=== PATIENT | female | born 1945 | race Caucasian/White ===

== ENCOUNTER 2018-01-04 03:25 | Emergency (ER) | payer MEDICARE ==
[2018-01-04] MEDS ORDERED: NS 0.9% 1000 ML* 1,000 ML IV ONE (04:09)
[2018-01-04] MEDS ORDERED: Ketorolac INJ* 30 MG/ML 1 ML VIAL IV ONE (04:09)
[2018-01-04 04:51] LABS: Urine Appearance Clear; Urine Blood Negative (Negative); Urine Color Straw; Urine Ketones Negative (Negative); Urine Protein Negative (Negative); Urine Specific Gravity 1.009 (1.010-1.030); Urine Urobilinogen Negative (Negative)
[2018-01-04 04:57] LABS: INR 0.87 (0.77-1.02)
[2018-01-04 05:00] LABS: ABS Basophils 0 10^3/ul (0-0.2); ABS Eosinophils 0.3 10^3/ul (0-0.6); ABS Lymphocytes 0.7 10^3/ul (1.0-4.8); ABS Monocytes 0.7 10^3/ul (0-0.8); ABS Neutrophils 5.8 10^3/ul (1.5-7.7); ABS Nucleated RBC 0 10^3/ul; Eosinophil % 3.8 % (0-6); Hematocrit 31 % (35-47); Hemoglobin 10.4 g/dl (12.0-16.0); Lymphocyte % 8.9 % (25-47); Mean Corpuscular HGB Conc 34 g/dl (31-36); Mean Corpuscular Hemoglobin 32 pg (27-31); Mean Corpuscular Volume 96 fL (80-97); Mean Platelet Volume 6.8 um3 (7.4-10.4); Nucleated Red Blood Cells % 0.1; Platelet Count 316 10^3/ul (150-450); Red Blood Count 3.23 10^6/ul (4.0-5.4); Red Cell Distribution Width 13 % (10.5-15); White Blood Count 7.4 10^3/ul (3.5-10.8)
[2018-01-04 05:09] LABS: EGFR Non-African American 53.6 (>60)
[2018-01-04 06:01] VITALS: BP 146/82
--- NOTE | 2018-01-04 06:02 | ED ---
Shine Eli Gabriel, scribed for Earl Ordonez on 01/04/18 at 0403 . Abdominal Pain/Female - HPI Summary HPI Summary: This patient is a 72 year old F presenting to [facility] accompanied by her partner with a chief complaint of ABD pain since 2000 tonight after she took oxycodone. The patient rates the pain 9/10 in severity. Patient reports mild vomiting. Pt states she had not eaten a lot tonight and took her pain reliever anyway. Hx pancreatic cancer - History of Current Complaint Chief Complaint: EDAbdPain Stated Complaint: ABD PAIN Time Seen by Provider: 01/04/18 03:54 Hx Obtained From: Patient Onset/Duration: Still Present Timing: Constant Severity Initially: Severe Severity Currently: Severe Pain Intensity: 9 Pain Scale Used: 0-10 Numeric Location: Diffuse Radiates: No Associated Signs and Symptoms: Positive: Vomiting - mild. Negative: Diarrhea Allergies/Adverse Reactions: Allergies Allergy/AdvReac Type Severity Reaction Status Date / Time bacitracin Allergy Rash Verified 01/04/18 03:32 neomycin Allergy Rash Verified 01/04/18 03:32 [From Neosporin ([id number])] polymyxin B Allergy Rash Verified 01/04/18 03:32 [From Neosporin ([id number])] PMH/Surg Hx/FS Hx/Imm Hx Endocrine/Hematology History: Denies: Hx Diabetes Cardiovascular History: Reports: Hx Hypertension Sensory History: Denies: Hx Legally Blind, Hx Deafness Opthamlomology History: Denies: Hx Legally Blind - Cancer History Cancer Type, Location and Year: pancreatic 2018 Hx Chemotherapy: No Hx Radiation Therapy: No - Surgical History Surgery Procedure, Year, and Place: appendectomy, exploratory lap to find Left pelvic kidney, Infectious Disease History: No Infectious Disease History: Reports: Hx Hepatitis - type A at age 18 Denies: History Other Infectious Disease, Traveled Outside the [place] in Last 30 Days - Family History Known Family History: Negative: Cardiac Disease Family History: no reported cardio vascular issues in family lineage - Social History Alcohol Use: Rare Hx Substance Use: No Substance Use Type: Reports: None Hx Tobacco Use: No Smoking Status (MU): Never Smoked Tobacco Review of Systems Negative: Fever Positive: Abdominal Pain, Vomiting. Negative: Diarrhea All Other Systems Reviewed And Are Negative: Yes Physical Exam - Summary Physical Exam Summary: Appearance: Well appearing, no pain distress Skin: warm, dry, reflects adequate perfusion Head/face: normal Eyes: EOMI, VETO ENT: normal Neck: supple, non-tender Respiratory: CTA, breath sounds present Cardiovascular: RRR, pulses symmetrical Abdomen: diffuse ABD tenderness Bowel: present Musculoskeletal: normal, strength/ROM intact Neuro: normal, sensory motor intact, A&Ox3 Triage Information Reviewed: Yes Vital Signs On Initial Exam: Initial Vitals Temp Pulse Resp BP Pulse Ox 97.9 F 83 16 155/88 99 01/04/18 03:29 01/04/18 03:29 01/04/18 03:29 01/04/18 03:29 01/04/18 03:29 Vital Signs Reviewed: Yes Diagnostics - Vital Signs Vital Signs Temp Pulse Resp BP Pulse Ox 01/04/18 03:29 97.9 F 83 16 155/88 99 - Laboratory Lab Results: Lab Results 01/04/18 01/04/18 01/04/18 Range/Units 04:34 04:34 04:34 WBC 7.4 (3.5-10.8) 10^3/ul RBC 3.23 L (4.0-5.4) 10^6/ul Hgb 10.4 L (12.0-16.0) g/dl Hct 31 L (35-47) % MCV 96 (80-97) fL MCH 32 H (27-31) pg MCHC 34 (31-36) g/dl RDW 13 (10.5-15) % Plt Count 316 (150-450) 10^3/ul MPV 6.8 L (7.4-10.4) um3 Neut % (Auto) 77.9 (38-83) % Lymph % (Auto) 8.9 L (25-47) % [place] % (Auto) 8.8 H (0-7) % Eos % (Auto) 3.8 (0-6) % Baso % (Auto) 0.6 (0-2) % Absolute Neuts (auto) 5.8 (1.5-7.7) 10^3/ul Absolute Lymphs (auto) 0.7 L (1.0-4.8) 10^3/ul Absolute Monos (auto) 0.7 (0-0.8) 10^3/ul Absolute Eos (auto) 0.3 (0-0.6) 10^3/ul Absolute Basos (auto) 0 (0-0.2) 10^3/ul Absolute Nucleated RBC 0 10^3/ul Nucleated RBC % 0.1 INR (Anticoag Therapy) 0.87 (0.77-1.02) APTT 32.6 (26.0-36.3) seconds Sodium 124 L (139-145) mmol/L Potassium 3.8 (3.5-5.0) mmol/L Chloride 90 L (101-111) mmol/L Carbon Dioxide 27 (22-32) mmol/L Anion Gap 7 (2-11) mmol/L BUN 11 (6-24) mg/dL Creatinine 1.02 H (0.51-0.95) mg/dL Est GFR ( Amer) 68.9 (>60) Est GFR (Non-Af Amer) 53.6 (>60) BUN/Creatinine Ratio 10.8 (8-20) Glucose 126 H (70-100) mg/dL Lactic Acid (0.5-2.0) mmol/L Calcium 10.0 (8.6-10.3) mg/dL Total Bilirubin 0.70 (0.2-1.0) mg/dL AST 22 (13-39) U/L ALT 16 (7-52) U/L Alkaline Phosphatase 97 (34-104) U/L Troponin I 0.01 (<0.04) ng/mL Total Protein 6.9 (6.4-8.9) g/dL Albumin 4.1 (3.2-5.2) g/dL Globulin 2.8 (2-4) g/dL Albumin/Globulin Ratio 1.5 (1-3) Lipase 10 L (11.0-82.0) U/L Urine Color Urine Appearance Urine pH (5-9) Ur Specific [place] (1.010-1.030) Urine Protein (Negative) Urine Ketones (Negative) Urine Blood (Negative) Urine Nitrate (Negative) Urine Bilirubin (Negative) Urine Urobilinogen (Negative) Ur Leukocyte Esterase (Negative) Urine Glucose (Negative) 01/04/1818 Range/Units 04:34 04:34 WBC (3.5-10.8) 10^3/ul RBC (4.0-5.4) 10^6/ul Hgb (12.0-16.0) g/dl Hct (35-47) % MCV (80-97) fL MCH (27-31) pg MCHC (31-36) g/dl RDW (10.5-15) % Plt Count (150-450) 10^3/ul MPV (7.4-10.4) um3 Neut % (Auto) (38-83) % Lymph % (Auto) (25-47) % [place] % (Auto) (0-7) % Eos % (Auto) (0-6) % Baso % (Auto) (0-2) % Absolute Neuts (auto) (1.5-7.7) 10^3/ul Absolute Lymphs (auto) (1.0-4.8) 10^3/ul Absolute Monos (auto) (0-0.8) 10^3/ul Absolute Eos (auto) (0-0.6) 10^3/ul Absolute Basos (auto) (0-0.2) 10^3/ul Absolute Nucleated RBC 10^3/ul Nucleated RBC % INR (Anticoag Therapy) (0.77-1.02) APTT (26.0-36.3) seconds Sodium (139-145) mmol/L Potassium (3.5-5.0) mmol/L Chloride (101-111) mmol/L Carbon Dioxide (22-32) mmol/L Anion Gap (2-11) mmol/L BUN (6-24) mg/dL Creatinine (0.51-0.95) mg/dL Est GFR ( Amer) (>60) Est GFR (Non-Af Amer) (>60) BUN/Creatinine Ratio (8-20) Glucose (70-100) mg/dL Lactic Acid 0.6 (0.5-2.0) mmol/L Calcium (8.6-10.3) mg/dL Total Bilirubin (0.2-1.0) mg/dL AST (13-39) U/L ALT (7-52) U/L Alkaline Phosphatase (34-104) U/L Troponin I (<0.04) ng/mL Total Protein (6.4-8.9) g/dL Albumin (3.2-5.2) g/dL Globulin (2-4) g/dL Albumin/Globulin Ratio (1-3) Lipase (11.0-82.0) U/L Urine Color Straw Urine Appearance Clear Urine pH 6.0 (5-9) Ur Specific [place] 1.009 L (1.010-1.030) Urine Protein Negative (Negative) Urine Ketones Negative (Negative) Urine Blood Negative (Negative) Urine Nitrate Negative (Negative) Urine Bilirubin Negative (Negative) Urine Urobilinogen Negative (Negative) Ur Leukocyte Esterase Negative (Negative) Urine Glucose Negative (Negative) Result Diagrams: 01/04/18 04:34 01/04/18 04:34 Lab Statement: Any lab studies that have been ordered have been reviewed, and results considered in the medical decision making process. - Radiology ABD Xray Radiology Interpretation Completed By: ED Physician - no acute disease Abdominal Pain Fem Course/Dx - Course Course Of Treatment: This patient is a 72 year old F presenting to [facility] accompanied by her partner with a chief complaint of ABD pain since 1999 tonight after she took oxycodone. The patient rates the pain 9/10 in severity. Patient reports mild vomiting. Pt states she had not eaten a lot tonight and took her pain reliever anyway. Hx pancreatic cancer. ABD XR reveals, no acute disease. Blood work and UA obtained. In the ED course the patient was given toradol and pt is feeling better. Dx ABD pain and pancreatic cancer. Patient will be discharged with and follow up from PCP. The patient is agreeable with this plan. - Diagnoses Differential Diagnosis: Positive: Bowel Obstruction Provider Diagnoses: Abdominal pain, Pancreatic cancer Discharge - Sign-Out/Discharge Documenting (check all that apply): Discharge/Admit/Transfer - Discharge Plan Condition: Stable Disposition: HOME Patient Education Materials: Acute Abdominal Pain (ED) Referrals: Jefry Vines MD [Primary Care Provider] - 3 Days Additional Instructions: RETURN TO THE EMERGENCY DEPARTMENT FOR CHANGING OR WORSENING SYMPTOMS - Billing Disposition and Condition Condition: STABLE Disposition: HOME The documentation as recorded by the Shine hilton Gabriel accurately reflects the service I personally performed and the decisions made by Mery guerra Emmanuel.
--- NOTE | 2018-01-04 08:31 | RAD ---
Indication: LEFT lower quadrant pain. History of pancreatic mass. Comparison: December 17, 2017 CT Technique: Supine view of the abdomen. Report: Unremarkable bowel gas pattern. Small volume of stool visualized in the colon. Few pelvic phleboliths. Subtle RIGHT upper quadrant calcifications corresponding with calcified gallstones on CT. Costochondral calcifications. Unremarkable soft tissue contours. Degenerative spondylosis. No suspicious focal osseous lesions evident. IMPRESSION: 1. Cholelithiasis. 2. No acute abdominal pelvic pathologic process evident within limits of supine abdomen radiograph.
== END 2018-01-04 06:03 | disposition home or self-care (01) ==
LOC: ED 03:25
DX: R10.32 Left lower quadrant pain (principal); C25.9 Malignant neoplasm of pancreas, unspecified; K80.20 Calculus of gallbladder without cholecystitis without obstruction
CPT/HCPCS: 36415; 74018; 80053; 81003; 83605; 83690; 84484; 85025; 85610; 85730; 96360; 96374; 99283; J1885

== ENCOUNTER 2018-01-08 17:51 | Emergency (ER) | payer MEDICARE ==
[2018-01-08] MEDS ORDERED: Ketorolac INJ* 30 MG/ML 1 ML VIAL IV PUSH ONE (18:31)
--- NOTE | 2018-01-08 19:09 | RAD ---
HISTORY: Constipation, pain COMPARISONS: January 04, 2018 VIEWS: Frontal views of the abdomen. FINDINGS: BOWEL: There is a nonspecific bowel gas pattern, with nondilated small bowel gas noted. There is a large amount of stool within the colon. CALCULI: Again noted are calculi of the right upper quadrant. BONES AND SOFT TISSUES: Degenerative changes are noted OTHER FINDINGS: The lung bases are clear. There is no subphrenic gas. IMPRESSION: NONSPECIFIC BOWEL GAS PATTERN. LARGE AMOUNT OF STOOL WITHIN THE COLON.
--- NOTE | 2018-01-08 20:03 | ED ---
Ping Eli Emily, scribed for Dandre Dennis MD on 01/08/18 at 1832 . Abdominal Pain/Female - HPI Summary HPI Summary: This patient is a 72 year old F presenting to [facility] accompanied by with a chief complaint of intermittent, cramping abd pain that began early this morning. The patient rates the pain 10/10 in severity. Symptoms aggravated by nothing. Symptoms alleviated by nothing. Patient reports constipation. Patient denies fever. Pt reports experiencing similar symptoms previously. - History of Current Complaint Chief Complaint: EDAbdPain Stated Complaint: ABD PAIN Time Seen by Provider: 01/08/18 18:22 Hx Obtained From: Patient Onset/Duration: Sudden Onset Timing: Constant Severity Initially: Severe Severity Currently: Severe Pain Intensity: 10 Pain Scale Used: 0-10 Numeric Location: Diffuse Radiates: No Character: Cramping Aggravating Factor(s): Nothing Alleviating Factor(s): Nothing Associated Signs and Symptoms: Positive: Other: - Positive constipation. Negative fever Allergies/Adverse Reactions: Allergies Allergy/AdvReac Type Severity Reaction Status Date / Time bacitracin Allergy Rash Verified 01/08/18 17:57 neomycin Allergy Rash Verified 01/08/18 17:57 [From Neosporin ([id number])] polymyxin B Allergy Rash Verified 01/08/18 17:57 [From Neosporin ([id number])] Home Medications: Home Medications Ondansetron ODT TAB* [Zofran 4 MG Odt TAB*] 4 mg PO Q6H PRN 01/08/18 [History Confirmed 01/08/18] PMH/Surg Hx/FS Hx/Imm Hx Previously Healthy: No Endocrine/Hematology History: Denies: Hx Diabetes Cardiovascular History: Reports: Hx Hypertension Sensory History: Denies: Hx Legally Blind, Hx Deafness Opthamlomology History: Denies: Hx Legally Blind - Cancer History Cancer Type, Location and Year: pancreatic 2018 Hx Chemotherapy: No Hx Radiation Therapy: No - Surgical History Surgery Procedure, Year, and Place: appendectomy, exploratory lap to find Left pelvic kidney, Infectious Disease History: No Infectious Disease History: Reports: Hx Hepatitis - type A at age 18 Denies: History Other Infectious Disease, Traveled Outside the [place] in Last 30 Days - Family History Known Family History: Positive: Other - Positive breast CA Negative: Cardiac Disease Family History: no reported cardio vascular issues in family lineage - Social History Occupation: Employed Full-time Lives: With Family Alcohol Use: Rare Hx Substance Use: No Substance Use Type: Reports: None Hx Tobacco Use: No Smoking Status (MU): Never Smoked Tobacco Review of Systems Negative: Fever Positive: Abdominal Pain, Other - Positive constipation All Other Systems Reviewed And Are Negative: Yes Physical Exam - Summary Physical Exam Summary: Appearance: Well appearing, no pain distress Skin: warm, dry, reflects adequate perfusion Head/face: normal Eyes: EOMI, VETO ENT: normal Neck: supple, non-tender Respiratory: CTA, breath sounds present Cardiovascular: RRR, pulses symmetrical Abdomen: non-tender, Diffuse fullness to her abd Bowel Sounds: present Rectal Exam: empty, soft stool only Musculoskeletal: normal, strength/ROM intact Neuro: normal, sensory motor intact, A&Ox3 Triage Information Reviewed: Yes Vital Signs On Initial Exam: Initial Vitals Temp Pulse Resp BP Pulse Ox 98.7 F 90 17 162/85 100 01/08/18 17:53 01/08/18 17:53 01/08/18 17:53 01/08/18 17:53 01/08/18 17:53 Vital Signs Reviewed: Yes Diagnostics - Vital Signs Vital Signs Temp Pulse Resp BP Pulse Ox 01/08/18 17:53 98.7 F 90 17 162/85 100 - Laboratory Lab Statement: Any lab studies that have been ordered have been reviewed, and results considered in the medical decision making process. - Radiology Abdomen XR Radiology Interpretation Completed By: Radiologist - Abdomen XR reveals, per radiologist, nonspecific bowel gas pattern. Large amount of stool within the colon. ED physician has reviewed this radiology report. Re-Evaluation - Re-Evaluation First Eval Re-Evaluation Time: 19:30 Change: Improved Comment: Performed an enema on the pt Second Eval Re-Evaluation Time: 19:51 Change: Improved Comment: Discussed plan of care with pt Abdominal Pain Fem Course/Dx - Course Course Of Treatment: Patient with opiate related constipation and history of metastatic pancreatic cancer. X-ray confirms constipation. Patient didn't have a lot of pain until she took magnesium citrate. She had relief here after Toradol and soapsuds enema. She did pass a good amount of stool. She will follow up with her primary care physician. - Diagnoses Provider Diagnoses: Constipation, History of pancreatic cancer Discharge - Sign-Out/Discharge Documenting (check all that apply): Discharge/Admit/Transfer - Discharge home - Discharge Plan Condition: Improved Disposition: HOME Prescriptions: Hyoscyamine Sulfate [Levsin-Sl] 0.125 mg SL Q6H PRN #20 sub PRN Reason: cramping Polyethylene Glycol 3350 BTL* [Miralax] 17 gm PO TID PRN #1 btl PRN Reason: Constipation Patient Education Materials: Constipation (ED) Referrals: Jefry Vines MD [Primary Care Provider] - Additional Instructions: Natural fruit juices may help. Drink lots of clear liquids. Exercise and abdominal massage. Home bowel regimen including MiraLAX. If this doesn't work your doctor can consider prescribing you Relistor (for opiate-related constipation). Home use of enemas may help. Return if worse, new symptoms or other concerns. - Billing Disposition and Condition Condition: IMPROVED Disposition: HOME The documentation as recorded by the Ping hilton Emily accurately reflects the service I personally performed and the decisions made by me, Dandre Dennis MD.
[2018-01-08 20:16] VITALS: BP 102/77
== END 2018-01-08 20:15 | disposition home or self-care (01) ==
LOC: ED 17:51
DX: K59.00 Constipation, unspecified (principal); R10.9 Unspecified abdominal pain; Z85.07 Personal history of malignant neoplasm of pancreas
CPT/HCPCS: 74018; 96374; 99283; J1885

== ENCOUNTER 2018-02-13 15:38 | Emergency (ER) | payer MEDICARE, OTHER ==
[2018-02-13] MEDS ORDERED: NS 0.9% 1000 ML* 1,000 ML IV ONE (17:42)
[2018-02-13] MEDS ORDERED: Ketorolac INJ* 30 MG/ML 1 ML VIAL IV PUSH ONE (17:55)
[2018-02-13 18:44] LABS: Hematocrit 31 % (35-47); Hemoglobin 10.6 g/dl (12.0-16.0); Mean Corpuscular HGB Conc 34 g/dl (31-36); Mean Corpuscular Hemoglobin 31 pg (27-31); Mean Corpuscular Volume 93 fL (80-97); Mean Platelet Volume 7.5 um3 (7.4-10.4); Platelet Count 137 10^3/ul (150-450); Red Blood Count 3.37 10^6/ul (4.0-5.4); Red Cell Distribution Width 13 % (10.5-15); White Blood Count 0.9 10^3/ul (3.5-10.8)
[2018-02-13 19:00] LABS: EGFR Non-African American 70.9 (>60)
[2018-02-13 19:11] LABS: Urine Appearance Clear; Urine Blood 1+ (Negative); Urine Color Yellow; Urine Ketones Negative (Negative); Urine Protein Negative (Negative); Urine Red Blood Cell Trace(0-2/hpf) (Absent); Urine Specific Gravity 1.008 (1.010-1.030); Urine Urobilinogen Negative (Negative); Urine White Blood Cell Trace(0-5/hpf) (Absent)
[2018-02-13 19:20] LABS: ABS Basophils 0 10^3/ul (0-0.2); ABS Eosinophils 0.1 10^3/ul (0-0.6); ABS Lymphocytes 0.4 10^3/ul (1.0-4.8); ABS Monocytes 0.1 10^3/ul (0-0.8); ABS Nucleated RBC 0 10^3/ul; Eosinophil % 7.5 % (0-6); Lymphocyte % 40.5 % (25-47); Nucleated Red Blood Cells % 0.1
[2018-02-13] MEDS ORDERED: Potassium Chloride LIQUID* 20 MEQ PACKET PO ONE (19:39)
[2018-02-13] MEDS ORDERED: Magnesium Sulfate 1 GM IV* 1 GM/100 ML BAG IV ONE (19:39)
--- NOTE | 2018-02-13 20:24 | ED ---
Inge Eli Julia, scribed for Terell Grande MD on 02/13/18 at 1756 . Abdominal Pain/Female - HPI Summary HPI Summary: This patient is a 72 year old F presenting to [facility] accompanied by her with a chief complaint of intermittent lower abdominal pain and cramping since yesterday and diarrhea for the past few days. She has been taking Imodium for her symptoms. She states she is now unable to pass gas. Pain is 10/10 in severity. Patient just started chemotherapy two weeks ago for pancreatic cancer. - History of Current Complaint Chief Complaint: EDAbdPain Stated Complaint: ABD PAIN Time Seen by Provider: 02/13/18 17:41 Hx Obtained From: Patient Onset/Duration: Lasting Days Timing: Intermittent Episode Lasting Severity Currently: Severe Pain Intensity: 10 Pain Scale Used: 0-10 Numeric Location: Other - lower Radiates: No Character: Cramping Alleviating Factor(s): Nothing Associated Signs and Symptoms: Positive: Diarrhea Allergies/Adverse Reactions: Allergies Allergy/AdvReac Type Severity Reaction Status Date / Time neomycin Allergy Rash Verified 02/13/18 15:44 [From Neosporin ([id number])] Opioids - Morphine Analogues Allergy See Comment Verified 02/13/18 15:44 polymyxin B Allergy Rash Verified 02/13/18 15:44 [From Neosporin ([id number])] PMH/Surg Hx/FS Hx/Imm Hx Endocrine/Hematology History: Denies: Hx Diabetes Cardiovascular History: Reports: Hx Hypertension - ON MEDICATION- "LABILE" BP Denies: Hx Pacemaker/ICD Respiratory History: Denies: Hx Asthma GI History: Reports: Other GI Disorders - PANCREATIC CANCER, N/V/D with chemo History: Denies: Hx Renal Disease Musculoskeletal History: Reports: Hx Arthritis, Hx Back Problems - compression fractures in spine, back and neck pain Sensory History: Denies: Hx Legally Blind, Hx Deafness, Hx Hearing Aid Opthamlomology History: Denies: Hx Legally Blind Psychiatric History: Reports: Hx Anxiety, Hx Depression Denies: Hx Panic Disorder - Cancer History Cancer Type, Location and Year: pancreatic 2017 Hx Chemotherapy: Yes - started february 2018 Hx Radiation Therapy: No - Surgical History Surgery Procedure, Year, and Place: appendectomy with exploratory lap to find Left pelvic kidney, , Infectious Disease History: No Infectious Disease History: Reports: Hx Hepatitis - hepatitis A Denies: History Other Infectious Disease, Traveled Outside the [place] in Last 30 Days - Family History Known Family History: Positive: Other - Positive breast CA Negative: Cardiac Disease Family History: no reported cardio vascular issues in family lineage - Social History Alcohol Use: None Hx Substance Use: No Substance Use Type: Reports: None Hx Tobacco Use: No Smoking Status (MU): Never Smoked Tobacco Review of Systems Negative: Fever Gastrointestinal: Other - unable to pass gas Positive: Abdominal Pain, Diarrhea All Other Systems Reviewed And Are Negative: Yes Physical Exam - Summary Physical Exam Summary: VITAL SIGNS: Reviewed. GENERAL: Patient is a well-developed and nourished female who is lying comfortable in the stretcher. Patient is not in any acute respiratory distress. HEAD AND FACE: No signs of trauma. No ecchymosis, hematomas or skull depressions. No sinus tenderness. EYES: PERRLA, EOMI x 2, No injected conjunctiva, no nystagmus. EARS: Hearing grossly intact. Ear canals and tympanic membranes are within normal limits. MOUTH: Oropharynx within normal limits. NECK: Supple, trachea is midline, no adenopathy, no JVD, no carotid bruit, no c- spine tenderness, neck with full ROM. CHEST: Symmetric, no tenderness at palpation LUNGS: Clear to auscultation bilaterally. No wheezing or crackles. CVS: Regular rate and rhythm, S1 and S2 present, no murmurs or gallops appreciated. ABDOMEN: Soft, with mild tenderness to the lower abdomen. No signs of distention. No rebound no guarding, and no masses palpated. Bowel sounds are normal. EXTREMITIES: FROM in all major joints, no edema, no cyanosis or clubbing. NEURO: Alert and oriented x 3. No acute neurological deficits. Speech is normal and follows commands. SKIN: Dry and warm Triage Information Reviewed: Yes Vital Signs On Initial Exam: Initial Vitals Temp Pulse Resp BP Pulse Ox 98.9 F 113 16 113/65 100 02/13/18 15:44 02/13/18 15:44 02/13/18 15:44 02/13/18 15:44 02/13/18 15:44 Vital Signs Reviewed: Yes Diagnostics - Vital Signs Vital Signs Temp Pulse Resp BP Pulse Ox 02/13/18 15:44 98.9 F 113 16 113/65 100 - Laboratory Lab Results: Lab Results 02/13/18 02/13/18 02/13/18 Range/Units 18:33 18:33 18:33 WBC 0.9 L (3.5-10.8) 10^3/ul RBC 3.37 L (4.0-5.4) 10^6/ul Hgb 10.6 L (12.0-16.0) g/dl Hct 31 L (35-47) % MCV 93 (80-97) fL MCH 31 (27-31) pg MCHC 34 (31-36) g/dl RDW 13 (10.5-15) % Plt Count 137 L (150-450) 10^3/ul MPV 7.5 (7.4-10.4) um3 Neut % (Auto) 38.4 (38-83) % Lymph % (Auto) 40.5 (25-47) % [place] % (Auto) 13.4 H (0-7) % Eos % (Auto) 7.5 H (0-6) % Baso % (Auto) 0.2 (0-2) % Absolute Neuts (auto) 0.3 L* (1.5-7.7) 10^3/ul Absolute Lymphs (auto) 0.4 L (1.0-4.8) 10^3/ul Absolute Monos (auto) 0.1 (0-0.8) 10^3/ul Absolute Eos (auto) 0.1 (0-0.6) 10^3/ul Absolute Basos (auto) 0 (0-0.2) 10^3/ul Absolute Nucleated RBC 0 10^3/ul Nucleated RBC % 0.1 Hem Pathologist Commnt Pending APTT 27.9 (26.0-36.3) seconds Sodium (139-145) mmol/L Potassium (3.5-5.0) mmol/L Chloride (101-111) mmol/L Carbon Dioxide (22-32) mmol/L Anion Gap (2-11) mmol/L BUN (6-24) mg/dL Creatinine (0.51-0.95) mg/dL Est GFR ( Amer) (>60) Est GFR (Non-Af Amer) (>60) BUN/Creatinine Ratio (8-20) Glucose (70-100) mg/dL Lactic Acid (0.5-2.0) mmol/L Calcium (8.6-10.3) mg/dL Magnesium (1.9-2.7) mg/dL Total Bilirubin (0.2-1.0) mg/dL AST (13-39) U/L ALT (7-52) U/L Alkaline Phosphatase (34-104) U/L C-Reactive Protein (< 5.00) mg/L B-Natriuretic Peptide 53 ( - 100) pg/mL Total Protein (6.4-8.9) g/dL Albumin (3.2-5.2) g/dL Globulin (2-4) g/dL Albumin/Globulin Ratio (1-3) Lipase (11.0-82.0) U/L Urine Color Urine Appearance Urine pH (5-9) Ur Specific [place] (1.010-1.030) Urine Protein (Negative) Urine Ketones (Negative) Urine Blood (Negative) Urine Nitrate (Negative) Urine Bilirubin (Negative) Urine Urobilinogen (Negative) Ur Leukocyte Esterase (Negative) Urine WBC (Auto) (Absent) Urine RBC (Auto) (Absent) Ur Squamous Epith Cells (Absent) Urine Bacteria (Absent) Hyaline Casts (Absent) Urine Glucose (Negative) 02/13/18 02/13/18 02/13/18 Range/Units 18:34 18:38 19:01 WBC (3.5-10.8) 10^3/ul RBC (4.0-5.4) 10^6/ul Hgb (12.0-16.0) g/dl Hct (35-47) % MCV (80-97) fL MCH (27-31) pg MCHC (31-36) g/dl RDW (10.5-15) % Plt Count (150-450) 10^3/ul MPV (7.4-10.4) um3 Neut % (Auto) (38-83) % Lymph % (Auto) (25-47) % [place] % (Auto) (0-7) % Eos % (Auto) (0-6) % Baso % (Auto) (0-2) % Absolute Neuts (auto) (1.5-7.7) 10^3/ul Absolute Lymphs (auto) (1.0-4.8) 10^3/ul Absolute Monos (auto) (0-0.8) 10^3/ul Absolute Eos (auto) (0-0.6) 10^3/ul Absolute Basos (auto) (0-0.2) 10^3/ul Absolute Nucleated RBC 10^3/ul Nucleated RBC % Hem Pathologist Commnt APTT (26.0-36.3) seconds Sodium 130 L (139-145) mmol/L Potassium 3.4 L (3.5-5.0) mmol/L Chloride 97 L (101-111) mmol/L Carbon Dioxide 23 (22-32) mmol/L Anion Gap 10 (2-11) mmol/L BUN 8 (6-24) mg/dL Creatinine 0.80 (0.51-0.95) mg/dL Est GFR ( Amer) 91.2 (>60) Est GFR (Non-Af Amer) 70.9 (>60) BUN/Creatinine Ratio 10.0 (8-20) Glucose 100 (70-100) mg/dL Lactic Acid 1.8 (0.5-2.0) mmol/L Calcium 9.5 (8.6-10.3) mg/dL Magnesium 1.5 L (1.9-2.7) mg/dL Total Bilirubin 0.60 (0.2-1.0) mg/dL AST 17 (13-39) U/L ALT 21 (7-52) U/L Alkaline Phosphatase 88 (34-104) U/L C-Reactive Protein 62.02 H (< 5.00) mg/L B-Natriuretic Peptide ( - 100) pg/mL Total Protein 6.0 L (6.4-8.9) g/dL Albumin 3.3 (3.2-5.2) g/dL Globulin 2.7 (2-4) g/dL Albumin/Globulin Ratio 1.2 (1-3) Lipase < 10 L (11.0-82.0) U/L Urine Color Yellow Urine Appearance Clear Urine pH 5.0 (5-9) Ur Specific [place] 1.008 L (1.010-1.030) Urine Protein Negative (Negative) Urine Ketones Negative (Negative) Urine Blood 1+ A (Negative) Urine Nitrate Negative (Negative) Urine Bilirubin Negative (Negative) Urine Urobilinogen Negative (Negative) Ur Leukocyte Esterase Negative (Negative) Urine WBC (Auto) Trace(0-5/hpf) (Absent) Urine RBC (Auto) Trace(0-2/hpf) (Absent) Ur Squamous Epith Cells Present A (Absent) Urine Bacteria Absent (Absent) Hyaline Casts Present A (Absent) Urine Glucose Negative (Negative) Result Diagrams: 02/13/18 18:33 02/13/18 18:34 Lab Statement: Any lab studies that have been ordered have been reviewed, and results considered in the medical decision making process. - EKG 1825 Cardiac Rate: Tachycardia EKG Rhythm: Sinus Tachycardia - 117 BPM EKG Interpretation: ST depression V2-V6 Re-Evaluation - Re-Evaluation First Re-Evaluation Time: 20:13 Change: Improved - Pain is gone with Toradol. Abdominal Pain Fem Course/Dx - Course Course Of Treatment: Patient is a 72-year-old female with history of chronic acid presents to the emergency room with a chief complaint of having abdominal cramping. Blood test results shows WBCs of 0.9, RBCs of 3.37, hemoglobin 10.6 and hematocrit 31. Absolute neutrophils is 0.3. Sodium 1:30 potassium 3.4 chloride 97. Magnesium is 1.5 and CRP is 62. Urinalysis is negative for UTI. In the ER course the patient was given IV fluids, Toradol for the pain, magnesium and potassium chloride. After these medications the patients symptoms have resolved. Patient reports that the pain is 0-10. I did not perform any abdominopelvic CT or abdomen x-ray series the patient reports that or her symptoms have resolved. I discussed the case with Dr. López from oncology and he agrees with management and requested for the patient to be discharged home with follow-up with his office on Thursday. I discussed all the findings and test results with the patient. Patient was instructed to return to the emergency room immediately if any of the symptoms return or worsens. Plan of care was discussed with the patient and understands and agrees. All questions were answered at patient satisfaction. There were no further complaints or concerns. Lung exam before discharge: CTA B/L. Good air exchange. No wheezing or crackles heard. CVS: S1 and S2 present. No murmurs appreciated. Patient is alert and oriented x 3. Patient is hemodynamically stable. Patient will be discharged home with follow up PCP in the next 2-3 days - Diagnoses Provider Diagnoses: Diffuse abdominal pain, Hypokalemia, Hypomagnesemia - Provider Notifications Discussed Care Of Patient With: Enrike López - oncology Time Discussed With Above Provider: 20:17 Instructed by Provider To: Other - Recommends patient is discharged home. Discharge - Sign-Out/Discharge Documenting (check all that apply): Discharge/Admit/Transfer - Discharge Plan Condition: Stable Disposition: HOME Referrals: Jefry Vines MD [Primary Care Provider] - If Needed Additional Instructions: RETURN TO THE EMERGENCY DEPARTMENT FOR ANY WORSENING OR NEW SYMPTOMS. - Billing Disposition and Condition Condition: STABLE Disposition: Home The documentation as recorded by the Inge hilton Julia accurately reflects the service I personally performed and the decisions made by Harjinder guerra Walter, MD.
[2018-02-13 21:18] VITALS: BP 141/80
[2018-02-13 21:46] LABS: ABS Neutrophils 0.3 10^3/ul (1.5-7.7)
--- NOTE | 2018-02-16 07:50 | ED ---
Progress - Progress Note Progress Note: Patient's preliminary urine culture reveals 10-25,000 Klebsiella pneumoniae. Patient presented to the ED with abdominal pain and no meds at discharge. She Is on chemotherapy. Will contact Dr. Salazar for follow-up. Re-Evaluation - Re-Evaluation First Re-Evaluation Time: 20:13 Change: Improved - Pain is gone with Toradol. Course/Dx - Course Course Of Treatment: Patient is a 72-year-old female with history of chronic acid presents to the emergency room with a chief complaint of having abdominal cramping. Blood test results shows WBCs of 0.9, RBCs of 3.37, hemoglobin 10.6 and hematocrit 31. Absolute neutrophils is 0.3. Sodium 1:30 potassium 3.4 chloride 97. Magnesium is 1.5 and CRP is 62. Urinalysis is negative for UTI. In the ER course the patient was given IV fluids, Toradol for the pain, magnesium and potassium chloride. After these medications the patients symptoms have resolved. Patient reports that the pain is 0-10. I did not perform any abdominopelvic CT or abdomen x-ray series the patient reports that or her symptoms have resolved. I discussed the case with Dr. López from oncology and he agrees with management and requested for the patient to be discharged home with follow-up with his office on Thursday. I discussed all the findings and test results with the patient. Patient was instructed to return to the emergency room immediately if any of the symptoms return or worsens. Plan of care was discussed with the patient and understands and agrees. All questions were answered at patient satisfaction. There were no further complaints or concerns. Lung exam before discharge: CTA B/L. Good air exchange. No wheezing or crackles heard. CVS: S1 and S2 present. No murmurs appreciated. Patient is alert and oriented x 3. Patient is hemodynamically stable. Patient will be discharged home with follow up PCP in the next 2-3 days - Diagnoses Provider Diagnoses: Diffuse abdominal pain, Hypokalemia, Hypomagnesemia - Provider Notifications Time Discussed With Above Provider: 20:17 Instructed by Provider To: Other - Recommends patient is discharged home. Discharge - Sign-Out/Discharge Documenting (check all that apply): Post-Discharge Follow Up - Discharge Plan Condition: Stable Disposition: HOME Patient Education Materials: Acute Abdominal Pain (ED) Referrals: Jefry Vines MD [Primary Care Provider] - If Needed Additional Instructions: RETURN TO THE EMERGENCY DEPARTMENT FOR ANY WORSENING OR NEW SYMPTOMS. - Billing Disposition and Condition Condition: STABLE Disposition: Home
--- NOTE | 2018-02-17 07:13 | PN ---
Progress Note - Progress Note Date of Service: 02/13/18 Note: Pt. seen in the ER 02/13/18 for lower abd. pain. Pt. was reportedly started on Keflex for a dental infection yesterday. Final urine culture today is growing 10 -25K klebsiella susceptible to keflex. No change in treatment needed at this time.
== END 2018-02-13 21:16 | disposition home or self-care (01) ==
LOC: ED 15:38
DX: R10.30 Lower abdominal pain, unspecified (principal); E87.6 Hypokalemia; E83.42 Hypomagnesemia; C25.9 Malignant neoplasm of pancreas, unspecified; I10 Essential (primary) hypertension; F41.9 Anxiety disorder, unspecified; F32.9 Major depressive disorder, single episode, unspecified
CPT/HCPCS: 36415; 80053; 81003; 81015; 83605; 83690; 83735; 83880; 85025; 85060; 85730; 86140; 87077; 87086; 87186; 93005; 96360; 96361; 96374; 96375; 99283; A9270-GY; J1885; J3475

== ENCOUNTER 2018-08-24 12:41 | Emergency (ER) | payer MEDICARE ==
--- NOTE | 2018-08-24 14:03 | ED ---
Abdominal Pain/Female - HPI Summary HPI Summary: The pt is 73 y/o female with pancreatic cancer presenting to [facility] c/o abd pain worsened today. She got diagnosed in December 2017 and is currently on chemotherapy. She got referred to the ED by Russ villegsa [facility] due to concerns about electrolyte levels and dehydration. She notes weakness (lasting 6 days) but denies back pain. The aching pain rated 9/10 in severity is relieved by Toradol. PMHX: Lumbar spine compression fracture. Her oncologist is Dr. Salazar. Home Medications Medication Instructions Recorded Confirmed Type LORazepam TAB(*) [Ativan 0.5 MG 0.5 mg PO Q4H PRN 12/25/17 08/24/18 History TAB (*)] Hyoscyamine Sulfate [Levsin-Sl] 0.125 mg SL Q6H PRN #20 sub 01/08/18 08/24/18 Rx Ondansetron ODT TAB* [Zofran 4 MG 4 mg PO Q6H PRN 01/08/18 08/24/18 History Odt TAB*] Omeprazole CAP* [Prilosec CAP* 20 20 mg PO DAILY 01/26/18 08/24/18 History MG] diphenhydrAMINE HCl 50 mg PO BEDTIME PRN 01/26/18 08/24/18 History [Diphenhydramine HCl] Acetaminophen [Tylenol] 650 mg PO QID 02/12/18 08/24/18 History Ibuprofen 800 mg PO BID PRN 05/24/18 08/24/18 History Medical Marijuana 1 ea PO Q2H PRN 05/24/18 08/24/18 History Magnesium Oxide TAB* [MagOx 400 400 mg PO DAILY 08/24/18 08/24/18 History TAB*] Potassium Chlor TAB 20 MEQ* 20 meq PO BID 08/24/18 08/24/18 History - History of Current Complaint Chief Complaint: EDGeneral Stated Complaint: WEAKNESS Time Seen by Provider: 08/24/18 13:46 Hx Obtained From: Patient Onset/Duration: Sudden Onset, Lasting Days, Still Present, Worse Since - Today Timing: Constant Severity Initially: Severe Severity Currently: Severe Pain Intensity: 9 Pain Scale Used: 0-10 Numeric Location: Diffuse Aggravating Factor(s): Nothing Alleviating Factor(s): Medications Associated Signs and Symptoms: Negative: Back Pain Allergies/Adverse Reactions: Allergies Allergy/AdvReac Type Severity Reaction Status Date / Time neomycin Allergy Rash Verified 08/16/18 15:42 [From Neosporin ([id number])] Opioids - Morphine Analogues Allergy See Comment Verified 08/16/18 15:42 polymyxin B Allergy Rash Verified 08/16/18 15:42 [From Neosporin ([id number])] Home Medications: Home Medications Magnesium Oxide TAB* [MagOx 400 TAB*] 400 mg PO DAILY 08/24/18 [History Confirmed 08/24/18] Potassium Chlor TAB 20 MEQ* 20 meq PO BID 08/24/18 [History Confirmed 08/24/18] PMH/Surg Hx/FS Hx/Imm Hx Previously Healthy: No Endocrine/Hematology History: Denies: Hx Diabetes Cardiovascular History: Reports: Hx Hypertension - ON MEDICATION- "LABILE" BP Denies: Hx Pacemaker/ICD Respiratory History: Denies: Hx Asthma GI History: Reports: Other GI Disorders - PANCREATIC CANCER, N/V/D with chemo History: Denies: Hx Dialysis, Hx Renal Disease - states hx left pelvic kidney Musculoskeletal History: Reports: Hx Arthritis, Hx Back Problems - compression fractures in spine, back and neck pain Sensory History: Denies: Hx Legally Blind, Hx Deafness, Hx Hearing Aid Opthamlomology History: Denies: Hx Legally Blind Neurological History: Comment Only: Other Neuro Impairments/Disorders - PAIN CLINIC PT. Psychiatric History: Reports: Hx Anxiety, Hx Depression Denies: Hx Panic Disorder - Cancer History Cancer Type, Location and Year: pancreatic 2018, liver Hx Chemotherapy: Yes - started february 2018 Hx Radiation Therapy: No - Surgical History Surgery Procedure, Year, and Place: appendectomy with exploratory lap to find Left pelvic kidney, , Infectious Disease History: No Infectious Disease History: Reports: Hx Hepatitis - hepatitis A Denies: History Other Infectious Disease, Traveled Outside the [place] in Last 30 Days - Family History Known Family History: Positive: Other - Positive breast CA Negative: Cardiac Disease Family History: no reported cardio vascular issues in family lineage - Social History Occupation: Retired Lives: With Family Alcohol Use: None Hx Substance Use: No Substance Use Type: Reports: None Hx Tobacco Use: No Smoking Status (MU): Never Smoked Tobacco Review of Systems Positive: Abdominal Pain Musculoskeletal: Negative - Back pain Positive: Weakness All Other Systems Reviewed And Are Negative: Yes Physical Exam - Summary Physical Exam Summary: Appearance: Cachetic appearing, no pain distress Skin: warm, dry, reflects adequate perfusion Head/face: normal Eyes: EOMI, VETO ENT: normal Neck: supple, non-tender Respiratory: CTA, breath sounds present Cardiovascular: RRR, pulses symmetrical Abdomen: tender, soft Musculoskeletal: contracted Neuro: A&Ox3 Triage Information Reviewed: Yes Vital Signs On Initial Exam: Initial Vitals Resp 17 08/24/18 12:49 Vital Signs Reviewed: Yes Diagnostics - Vital Signs Vital Signs Temp Pulse Resp BP Pulse Ox 08/24/18 14:00 93 17 99 08/24/18 13:49 28 123/78 08/24/18 13:19 101 16 123/78 90 08/24/18 13:00 93 22 100 08/24/18 12:53 85 14 99 08/24/18 12:52 98.1 F 87 12 139/85 99 08/24/18 12:49 17 - Laboratory Result Diagrams: 08/24/18 14:45 08/24/18 14:46 Lab Statement: Any lab studies that have been ordered have been reviewed, and results considered in the medical decision making process. - Radiology CXR Radiology Interpretation Completed By: Radiologist Summary of Radiographic Findings: IMPRESSION: No radiographic evidence for acute cardiopulmonary abnormality on thisportable chest x-ray. The ED physician reviewed this radiology report. Abdominal Pain Fem Course/Dx - Course Course Of Treatment: A 73 year-old F with a hx of pancreatic cancer presents to the ED with a CC of abd pain worsened today. She got referred to the ED by Russ villegas [facility] due to concerns about electrolyte levels and dehydration. She notes weakness (lasting 6 days) but denies back pain. A Physical exam revealed a cachetic appearance and diffuse abdominal tenderness. A CXR is unremarkable. In the ED course, pt was given N.s 0.9&% 1000 ml IV, Heparin flush 5 ml IV and Ketorolac 30 mg IV which improved the symptoms. I discussed the care of the pt with Dr. Salazar-oncologist. Patient will be discharged with a final Dx of weakness, hyponatremia and pancreatic CA. Pt is agreeable with this plan. Allergies noted. - Diagnoses Differential Diagnosis: Positive: Other - weakness/dehydration Provider Diagnoses: Weakness, Hyponatremia, Pancreatic cancer - Provider Notifications Discussed Care Of Patient With: Raphael Salazar - Oncologist and Board Writer Time Discussed With Above Provider: 16:35 Discharge - Sign-Out/Discharge Documenting (check all that apply): Patient Departure - DC - Discharge Plan Condition: Stable Disposition: HOME Patient Education Materials: Hyponatremia (ED), Pancreatic Cancer (DC), Weakness (ED) Referrals: Raphael Salazar MD [Primary Care Provider] - Additional Instructions: Follow up with PCP in 2-3 days. Return to the ED for any new or worsening symptoms. - Billing Disposition and Condition Condition: STABLE Disposition: Home - Attestation Statements Document Initiated by Remaibe: Yes Documenting Scribe: Ava Campos Provider For Whom Yuki is Documenting (Include Credential): Dr. Earl Ordonez MD Scribe Attestation: Ava Eli scribed for Dr. Earl Ordonez MD on 08/24/18 at 1802. Scribe Documentation Reviewed: Yes Provider Attestation: The documentation as recorded by the Ava hilton accurately reflects the service I personally performed and the decisions made by , Dr. Earl Ordonez MD Status of Scribe Document: Viewed
[2018-08-24] MEDS ORDERED: NS 0.9% 1000 ML* 1,000 ML IV ONE (14:04)
[2018-08-24] MEDS ORDERED: Ketorolac INJ* 30 MG/ML 1 ML VIAL IV PUSH ONE (14:50)
[2018-08-24] MEDS ORDERED: Ketorolac INJ* 30 MG/ML 1 ML VIAL ONE (14:52)
[2018-08-24 14:57] LABS: ABS Basophils 0 10^3/ul (0-0.2); ABS Eosinophils 0 10^3/ul (0-0.6); ABS Lymphocytes 0.4 10^3/ul (1.0-4.8); ABS Monocytes 0.8 10^3/ul (0-0.8); ABS Neutrophils 11.1 10^3/ul (1.5-7.7); ABS Nucleated RBC 0 10^3/ul; Eosinophil % 0.2 %; Hematocrit 36 % (35-47); Hemoglobin 11.5 g/dl (12.0-16.0); Lymphocyte % 3.4 %; Mean Corpuscular HGB Conc 33 g/dl (31-36); Mean Corpuscular Hemoglobin 31 pg (27-31); Mean Corpuscular Volume 95 fL (80-97); Mean Platelet Volume 7.9 fL (7.4-10.4); Nucleated Red Blood Cells % 0; Platelet Count 278 10^3/ul (150-450); Red Blood Count 3.75 10^6/ul (4.00-5.40); Red Cell Distribution Width 19 % (10.5-15); White Blood Count 12.3 10^3/ul (3.5-10.8)
[2018-08-24 15:05] LABS: Activated Partial Thrombo Time 35.9 seconds (26.0-36.3); INR 0.91 (0.77-1.02)
[2018-08-24 15:21] LABS: Albumin 3.3 g/dL (3.2-5.2); Albumin/Globulin Ratio 1.3 (1-3); BUN/Creatinine Ratio 20.3 (8-20); Calcium 9.7 mg/dL (8.6-10.3); EGFR Non-African American 91.5 (>60); Globulin 2.5 g/dL (2-4); Magnesium 1.9 mg/dL (1.9-2.7); Potassium 3.8 mmol/L (3.5-5.0); Total Bilirubin 1.2 mg/dL (0.2-1.0); Total Protein 5.8 g/dL (6.4-8.9)
[2018-08-24 15:32] LABS: Urine Appearance Clear; Urine Bilirubin Negative (Negative); Urine Blood Negative (Negative); Urine Color Yellow; Urine Glucose Negative (Negative); Urine Ketones 1+ (Negative); Urine Nitrite Negative (Negative); Urine Protein Negative (Negative); Urine Specific Gravity 1.006 (1.010-1.030); Urine Urobilinogen Negative (Negative)
[2018-08-24 17:42] VITALS: BP 134/90
--- NOTE | 2018-08-24 21:25 | CONS ---
CC: Dr. Salazar * ER CONSULTATION REPORT: DATE OF CONSULT: 08/24/18 REQUESTING PROVIDER: Dr. Ordonez. CHIEF COMPLAINT: Weakness. HISTORY OF PRESENT ILLNESS: This is a 73-year-old female with metastatic pancreatic cancer, currently on palliative chemotherapy, who sustained a fall early this morning at home and called oncology office reporting severe weakness and recommendations were to call an ambulance at that time. The patient arrived in the emergency department, initial vitals were unremarkable. She had no associated head injury with the fall. She reports that she got up to use the restroom and was still somewhat tired and missed the toilet when she tried to sit down and instead fell to the floor and her had to help her up. In the emergency department, labs demonstrated a mild leukocytosis with a total white blood cell count of 12,300, hemoglobin of 11.5 g/dL, and platelet count of 278,000. Comprehensive metabolic panel showed hyponatremia, but this is chronic for her and within her usual range. Urinalysis was unremarkable, moderate elevation of lactic acid and bilirubin and transaminases. Chest x-ray shows no acute infiltrate and the patient had no complaints of fever or chills. No focal symptoms to suggest infectious etiology for her increase in weakness. PAST MEDICAL HISTORY: 1. Metastatic pancreatic cancer. 2. Chronic back pain unrelated to her malignancy. HOME MEDICATIONS: 1. Acetaminophen 500 mg p.o. 3 times daily as needed for pain or fever. 2. Ativan 0.5 to 1 mg p.o. q.4 hours as needed. 3. Benadryl 50 mg p.o. at bedtime. 4. Compazine 10 mg p.o. q.6 hours as needed. 5. Digestive enzymes 1 capsule p.o. 3 times daily. 6. Hyoscyamine 0.125 mg p.o. 4 times daily as needed. 7. Ibuprofen 800 mg p.o. 4 times daily as needed. 8. Magnesium oxide 400 mg p.o. daily. 9. Medical marijuana oil as directed. 10. MiraLAX 1 pack p.o. 3 times daily as needed. 11. Omeprazole 20 mg p.o. daily. 12. Ondansetron 4 mg p.o. q.4 hours as needed. 13. Potassium chloride 20 mEq p.o. twice daily. REVIEW OF SYSTEMS: As noted above in HPI. In addition to that, the patient has chronic abdominal pain, poor appetite, and intermittent nausea. All other symptoms reviewed and otherwise negative. PHYSICAL EXAM: Initial vitals, temperature 98.1 degrees Fahrenheit, pulse 87 beats per minute, respiratory rate 12, oxygen saturation 99% on room air, blood pressure 139/85 mmHg. General: Cachectic 73-year-old female, who is emotional and accompanied by her , but otherwise in no acute distress. HEENT: Head is normocephalic, atraumatic. Mucous membranes are pink and moist. Cardiovascular: Heart has a regular rate and rhythm without murmurs, rubs, or gallops. Respiratory: Lungs are clear to auscultation without wheezes, crackles , or rhonchi. Abdomen is soft diffusely, but mildly tender to palpation. Extremities: No edema noted. Severe muscle wasting. Skin: No concerning rashes or lesions. DIAGNOSTIC STUDIES/LAB DATA: CBC shows a white blood cell count of 12,300, hemoglobin of 11.5 g/dL, and a platelet count of 278,000. INR normal at 0.91. Comprehensive metabolic panel shows a sodium of 125 mmol/L, potassium of 3.8 mmol/L, BUN of 13, creatinine 0.64. Lactic acid of 3.1. Total bilirubin of 1.2, AST 60, ALT 47, alk phos of 519. Urinalysis is unremarkable, 1+ ketones and otherwise negative. Imaging: Chest x-ray shows no acute infiltrate. ASSESSMENT AND PLAN: This is a 73-year-old female with metastatic pancreatic cancer, on palliative chemotherapy, currently receiving gemcitabine and Abraxane. She has taken a break from recent treatment and her last cycle started 07/28/18. She experienced a fall at home today and presented to the emergency department with complaints of progressive weakness. The patient's baseline performance status has been poor for several months and she has required assistance to ambulate around her house. 1. Weakness - there does not appear to be any focal or reversible etiology to her weakness. She has been off treatments for approximately 3 weeks now without significant improvement in symptoms. She continues to lose weight and has progressive symptoms. The patient is contemplating discontinuing treatment and moving to hospice care. 2. Metastatic pancreatic cancer - treatment as above. Follow up with Dr. Salazar to discuss further treatment plans, but likely transition to hospice in the near future. DISPOSITION AND FOLLOWUP PLAN: The patient is appropriate for discharge to home , no new medications are indicated. The patient will follow up with Dr. Salazar in the near future for discussion of transition to hospice. Plan discussed with emergency department provider, Dr. Ordonez. JOHANNY CORNELIUS [id number]/[facility] #: [id number] SEEMA
== END 2018-08-24 17:41 | disposition home or self-care (01) ==
LOC: ED 12:41
DX: R53.1 Weakness (principal); E87.1 Hypo-osmolality and hyponatremia; C25.9 Malignant neoplasm of pancreas, unspecified; B15.9 Hepatitis A without hepatic coma; F32.9 Major depressive disorder, single episode, unspecified; F41.9 Anxiety disorder, unspecified; M54.9 Dorsalgia, unspecified; G89.29 Other chronic pain
CPT/HCPCS: 36415; 71045; 80053; 81003; 83605; 83690; 83735; 84484; 85025; 85610; 85730; 96375; 99282; 99284; J1642; J1885

== ENCOUNTER 2018-08-27 11:02 | Emergency (ER) | payer MEDICARE ==
--- NOTE | 2018-08-27 11:27 | ED ---
Adult Trauma - HPI Summary HPI Summary: This pt is a 73 y/o [place] [facility] [place] hip, pelvis and back pain since 2 days ago s/p fall. Pt reports that a couple of days ago she fell after she missed a step. Denies head strike or LOC. Pt came to the ED that day but refused imaging. She comes today for increasing and constant pain. She states she has lower extremity weakness, more than usual due to back pain. Denies numbness, urinary or fecal dysfunction, saddle anesthesia. PMHx includes compression fracture, pancreatic CA. Pt states that when she takes opiates she has abd pain. She states usually Toradol helps with the pain. She also uses medical marijuana and Ativan for the pain. - History of Current Complaint Chief Complaint: EDBackInjuryPain Stated Complaint: BACK PAIN Time Seen by Provider: 08/27/18 11:18 Hx Obtained From: Patient Mechanism of Injury: Fall Ambulatory at the Scene: Yes Loss of Consciousness: no loss of consciousness Onset/Duration: Started Days Ago - 2, Still Present Onset of Pain: Days - 2 Current Severity: Severe Pain Intensity: 10 Pain Scale Used: 0-10 Numeric Location: Abdomen/Pelvis - Pelvis, Extremities - hip bilateral, Other - back pain Aggravating Factor(s): Movement Alleviating Factor(s): Rest Associated Signs & Symptoms: Positive: Numbness/Weakness - weakness in LE. Negative: SOB, Chest Pain, Abdominal Pain, Fever, Nausea/Vomiting, Loss of Consciousness, Memory Loss, Significant Blood Loss - Allergy/Home Medications Allergies/Adverse Reactions: Allergies Allergy/AdvReac Type Severity Reaction Status Date / Time neomycin Allergy Rash Verified 08/16/18 15:42 [From Neosporin ([id number])] Opioids - Morphine Analogues Allergy See Comment Verified 08/16/18 15:42 polymyxin B Allergy Rash Verified 08/16/18 15:42 [From Neosporin ([id number])] Home Medications: Home Medications Potassium Chlor TAB* [Potassium Chlor TAB 20 MEQ*] 20 meq PO BID 08/27/18 [ History Confirmed 08/27/18] PMH/Surg Hx/FS Hx/Imm Hx Endocrine/Hematology History: Denies: Hx Diabetes Cardiovascular History: Reports: Hx Hypertension - ON MEDICATION- "LABILE" BP Denies: Hx Pacemaker/ICD Respiratory History: Denies: Hx Asthma GI History: Reports: Other GI Disorders - PANCREATIC CANCER, N/V/D with chemo History: Denies: Hx Dialysis, Hx Renal Disease - states hx left pelvic kidney Musculoskeletal History: Reports: Hx Arthritis, Hx Back Problems - compression fractures in spine, back and neck pain Sensory History: Denies: Hx Legally Blind, Hx Deafness, Hx Hearing Aid Opthamlomology History: Denies: Hx Legally Blind Neurological History: Comment Only: Other Neuro Impairments/Disorders - PAIN CLINIC PT. Psychiatric History: Reports: Hx Anxiety, Hx Depression Denies: Hx Panic Disorder - Cancer History Cancer Type, Location and Year: pancreatic 2018, liver Hx Chemotherapy: Yes - started february 2018 Hx Radiation Therapy: No - Surgical History Surgery Procedure, Year, and Place: appendectomy with exploratory lap to find Left pelvic kidney, , Infectious Disease History: No Infectious Disease History: Reports: Hx Hepatitis - hepatitis A Denies: History Other Infectious Disease, Traveled Outside the [place] in Last 30 Days - Family History Known Family History: Positive: Other - Positive breast CA Negative: Cardiac Disease Family History: no reported cardio vascular issues in family lineage - Social History Alcohol Use: None Hx Substance Use: No Substance Use Type: Reports: None Hx Tobacco Use: No Smoking Status (MU): Never Smoked Tobacco Review of Systems Negative: Fever, Chills Negative: Chest Pain Negative: Shortness Of Breath Negative: Abdominal Pain, Vomiting, Nausea Negative: incontinence Musculoskeletal: Other - POSITIVE: bilateral hip pain, pelvic pain, back pain Positive: Weakness. Negative: Paresthesia, Numbness All Other Systems Reviewed And Are Negative: Yes Physical Exam - Summary Physical Exam Summary: VITAL SIGNS: Reviewed. GENERAL: Patient is a thin and cachectic female who is lying comfortable in the stretcher. Patient is not in any acute respiratory distress. HEAD AND FACE: No signs of trauma. No ecchymosis, hematomas or skull depressions. No sinus tenderness. Pt seems icteric. EYES: PERRLA, EOMI x 2, No injected conjunctiva, no nystagmus. EARS: Hearing grossly intact. Ear canals and tympanic membranes are within normal limits. MOUTH: Oropharynx within normal limits. NECK: Supple, trachea is midline, no adenopathy, no JVD, no carotid bruit, no c- spine tenderness, neck with full ROM. CHEST: Symmetric, no tenderness at palpation LUNGS: Clear to auscultation bilaterally. No wheezing or crackles. CVS: Regular rate and rhythm, S1 and S2 present, no murmurs or gallops appreciated. ABDOMEN: Soft, non-tender. No signs of distention. No rebound, no guarding, and no masses palpated. Bowel sounds are normal. MSK: FROM in all major joints, no edema, no cyanosis or clubbing. Lumbar spine tenderness. NEURO: Alert and oriented x 3. No acute neurological deficits. Speech is normal and follows commands. No lower extremity weakness. No saddle anesthesia. SKIN: Dry and warm Triage Information Reviewed: Yes Vital Signs On Initial Exam: Initial Vitals Temp Pulse Resp BP Pulse Ox 98.1 F 113 16 131/84 99 08/27/18 11:02 08/27/18 11:02 08/27/18 11:02 08/27/18 11:02 08/27/18 11:02 Vital Signs Reviewed: Yes Diagnostics - Vital Signs Vital Signs Temp Pulse Resp BP Pulse Ox 08/27/18 11:02 98.1 F 113 16 131/84 99 - Laboratory Result Diagrams: 08/27/18 11:44 08/27/18 11:44 Lab Statement: Any lab studies that have been ordered have been reviewed, and results considered in the medical decision making process. - CT Pelvis CT CT Interpretation Completed By: Radiologist Summary of CT Findings: IMPRESSION: No fracture of the pelvis or either hip is noted. Dr. Grande has reviewed this report. Lumbar spine CT CT Interpretation Completed By: Radiologist Summary of CT Findings: IMPRESSION: 1. There has been interval development of an expansile osteolytic lesion of L2 consistent with progression of osseous metastatic disease. There is epidural extension of tumor at this level resulting in moderate to severe narrowing of the central canal. 2. Osteopenia. 3. Degenerative disc and osteoarthritis with multilevel neuroforaminal narrowing and narrowing of the central canal is described above. 4. No acute osseous injury to the lumbar spine. Preliminary findings were discussed with Dr. Grande in the emergency department at approximately 12:28 PM on August 27, 2018. Re-Evaluation - Re-Evaluation First Eval Re-Evaluation Time: 14:39 Comment: april Vinson, at bedside. Second Eval Re-Evaluation Time: 14:50 Comment: JOHANNY Vinson, reports pt declines admission to the hospital, pt would like to be discharged home. Third Eval Re-Evaluation Time: 15:12 Comment: PA recommends to discharge pt home with Dexamethasone and Valium and follow up with Dr. Neff on Thursday. Adult Trauma Course/Dx - Course Assessment/Plan: This pt is a 73 y/o female presenting to [facility] c/o hip, pelvis and back pain since 2 days ago s/p fall. Pt reports that a couple of days ago she fell after she missed a step. Denies head strike or LOC. Pt came to the ED that day but refused imaging. She comes today for increasing and constant pain. She states she has lower extremity weakness, more than usual due to back pain. Denies numbness, urinary or fecal dysfunction, saddle anesthesia. PMHx includes compression fracture, pancreatic CA. Pt states that when she takes opiates she has abd pain. She states usually Toradol helps with pain. She also uses medical marijuana and Ativan for the pain. Blood work shows an increased WBC of 14.5, hemoglobin is 11.2, hematocrit was 32 and platelets 227. Sodium is 124, carbon dioxide is 20 and anion gap is 13, AST is 54, alkaline phosphatase is 579, CRP of 51.2, total protein is 5.3. Lumbar spine CT impression: 1. THERE HAS BEEN INTERVAL DEVELOPMENT OF AN EXPANSILE OSTEOLYTIC LESION OF L2 CONSISTENT WITH PROGRESSION OF OSSEOUS METASTATIC DISEASE. THERE IS EPIDURAL EXTENSION OF TUMOR AT THIS LEVEL RESULTING IN MODERATE TO SEVERE NARROWING OF THE CENTRAL CANAL. 2. OSTEOPENIA. 3. DEGENERATIVE DISC AND OSTEOARTHRITIS WITH MULTILEVEL NEUROFORAMINAL NARROWING AND NARROWING OF THE CENTRAL CANAL IS DESCRIBED ABOVE. 4. NO ACUTE OSSEOUS INJURY TO THE LUMBAR SPINE. Pelvic CT impression: IMPRESSION: No fracture of the pelvis or either hip is noted. In the ED course the patient was given IV fluids, Valium, Decadron and Toradol for the pain. The patient reports that she is not able to take opiates due to side effects. At this point I discussed my physical exam and findings with Dr. Salazar , oncologist, who will CONSULT FOR THIS PATIENT. Patient was seen by Ms. Karel WONG from oncology and she discussed the case with Dr. Salazar and they offered admission to the patient. However, the patient declined admission since she prefers to take her Valium and Decadron at home and follow-up with Dr. Neff on Thursday. We gave instructions to the patient that if she develops weakness in any of the extremities, any bowel or urinary dysfunction she should immediately return to the emergency for further workup and management. The patient understands and agrees. The patient also understands and agrees with management and plan. Patient is hemodynamically stable, alert and oriented 3. The patient and Dr. Salazar as well as Ms. Vinson are also aware that her sodium level is 124 and AST is 54, but agree for the patient to be discharged home. - Diagnoses Provider Diagnoses: Osteolytic lesion, Back pain, Hyponatremia - Physician Notifications Discussed Care Of Patient With: Raphael Salazar Time Discussed With Above Provider: 13:15 Instructed by Provider To: Other - I discussed the case with Dr. Salazar, oncologist, who will come see the pt in the ED. Discharge - Sign-Out/Discharge Documenting (check all that apply): Patient Departure - Discharge home - Discharge Plan Condition: Stable Disposition: HOME Prescriptions: Dexamethasone TAB* [Decadron TAB*] 4 mg PO TID #90 tab Diazepam TAB(*) [Valium TAB(*)] 5 - 10 mg PO Q8H PRN #90 tab MDD 6 tabs PRN Reason: pain/spasm/anxiety Patient Education Materials: Back Pain (ED) Referrals: Raphael Salazar MD [Primary Care Provider] - Kirill Neff MD [Medical Doctor] - 08/30/18 10:30 am Additional Instructions: Please follow up with Dr. Neff as scheduled on 08/30/18. RETURN TO THE ED FOR ANY NEW OR WORSENING SYMPTOMS. - Billing Disposition and Condition Condition: STABLE Disposition: Home - Attestation Statements Document Initiated by Yuki: Yes Documenting Scribe: Milagros Elizalde Provider For Whom Yuki is Documenting (Include Credential): Terell Grande MD Scribe Attestation: Milagros Eli, reemaed for Terell Grande MD on 08/27/18 at 1903. Scribe Documentation Reviewed: Yes Provider Attestation: The documentation as recorded by the Milagros hilton accurately reflects the service I personally performed and the decisions made by me, Terell Grande MD Status of Scribe Document: Viewed
[2018-08-27] MEDS ORDERED: Ketorolac INJ* 30 MG/ML 1 ML VIAL IV PUSH ONE (11:31)
[2018-08-27] MEDS ORDERED: Dexamethasone IV* 4 MG/ML 1 ML (4 MG) IV SLOW PU ONE (11:31)
[2018-08-27] MEDS ORDERED: Diazepam TAB(*) 5 MG PO ONE (11:31)
[2018-08-27 11:53] LABS: ABS Basophils 0 10^3/ul (0-0.2); ABS Eosinophils 0 10^3/ul (0-0.6); ABS Lymphocytes 0.3 10^3/ul (1.0-4.8); ABS Monocytes 0.6 10^3/ul (0-0.8); ABS Neutrophils 13.5 10^3/ul (1.5-7.7); ABS Nucleated RBC 0 10^3/ul; Eosinophil % 0.1 %; Hematocrit 35 % (35-47); Hemoglobin 11.2 g/dl (12.0-16.0); Lymphocyte % 2.2 %; Mean Corpuscular HGB Conc 33 g/dl (31-36); Mean Corpuscular Hemoglobin 31 pg (27-31); Mean Corpuscular Volume 95 fL (80-97); Mean Platelet Volume 7.6 fL (7.4-10.4); Nucleated Red Blood Cells % 0; Platelet Count 227 10^3/ul (150-450); Red Blood Count 3.65 10^6/ul (4.00-5.40); Red Cell Distribution Width 19 % (10.5-15); White Blood Count 14.5 10^3/ul (3.5-10.8)
[2018-08-27 12:10] LABS: ALT 45 U/L (7-52); AST 54 U/L (13-39); Albumin 3.1 g/dL (3.2-5.2); Albumin/Globulin Ratio 1.4 (1-3); Alkaline Phosphatase 579 U/L (34-104); Anion Gap 13 mmol/L (2-11); BUN/Creatinine Ratio 22.5 (8-20); Blood Urea Nitrogen 16 mg/dL (6-24); CO2 Carbon Dioxide 20 mmol/L (22-32); Calcium 10.1 mg/dL (8.6-10.3); Chloride 91 mmol/L (101-111); EGFR African American 98.2 (>60); EGFR Non-African American 81.2 (>60); Globulin 2.2 g/dL (2-4); Glucose 96 mg/dL (70-100); Potassium 3.9 mmol/L (3.5-5.0); Sodium 124 mmol/L (135-145); Total Protein 5.3 g/dL (6.4-8.9)
[2018-08-27 15:49] VITALS: BP 111/78
--- NOTE | 2018-08-27 20:54 | CONS ---
CC: Dr. Salazar; Dr. Neff EMERGENCY DEPARTMENT CONSULTATION: DATE OF CONSULT: 08/27/18 REQUESTING PROVIDER: Dr. Terell Grande. CHIEF COMPLAINT: Weakness and pain. HISTORY OF PRESENT ILLNESS: This is a 73-year-old female with metastatic pancreatic cancer who has been receiving palliative chemotherapy, but tolerating it very poorly who was actually in the emergency department earlier this week with profound weakness. There were no focal or reversible abnormalities appreciated on exam or with laboratory findings at that time and the patient desired discharge to home. She contacted the oncology office earlier today stating that she was having increased back and pelvic pain and remained too weak to be transported by any means other than an ambulance. She was subsequently referred back to the emergency department for further evaluation. In the emergency department, the patient received a CT of the lumbar spine and pelvis, which unfortunately revealed an expansile osteolytic lesion at L2 consistent with metastatic disease and associated moderate-to- severe narrowing of the central canal. The patient reports generalized weakness and has been unable to ambulate independently at home. She has had to rely on her for help with transfers from bed to commode and she is, otherwise, nonambulatory. Her appetite remains extremely poor with intermittent nausea, abdominal pain, and cramping. This, unfortunately, has been chronic for her since the time of diagnosis. She also reports back pain, which is worse upon standing, but denies any numbness or tingling in her legs. No focal weakness. No loss of bowel or bladder control. No urinary retention. PAST MEDICAL HISTORY: Include: 1. Metastatic pancreatic cancer. 2. Chronic back pain. HOME MEDICATIONS: 1. Acetaminophen 500 mg p.o. 3 times daily as needed for pain or fever. 2. Ativan 0.5 mg p.o. q.4 hours as needed. 3. Benadryl 50 mg p.o. at bedtime. 4. Compazine 10 mg p.o. q.6 hours as needed. 5. Digestive enzymes 1 capsule p.o. 3 times daily with meals. 6. Hyoscyamine 0.125 mg p.o. 4 times daily as needed. 7. Ibuprofen 800 mg p.o. 4 times daily as needed. 8. Magnesium oxide 400 mg p.o. daily. 9. Medical marijuana oil as directed. 10. MiraLAX p.o. 3 times daily as needed. 11. Omeprazole 20 mg p.o. daily. 12. Ondansetron 40 mg p.o. q.4 hours as needed. 13. Potassium chloride 20 mEq p.o. daily. SOCIAL HISTORY: The patient lives at home with her . REVIEW OF SYSTEMS: As noted above in HPI. All other systems reviewed and otherwise negative. PHYSICAL EXAMINATION: Initial Vitals: Temperature 98.1 degrees Fahrenheit, pulse 113 beats per minute, respiratory rate 16, oxygen saturation 99% on room air, blood pressure 131/84 mmHg. General: This is a chronically ill, cachectic 73-year-old female accompanied by her , who appears lethargic and mildly anxious. HEENT: Head is normocephalic, atraumatic. Mucous membranes are pink and moist, mild alopecia. Cardiovascular: Heart has a regular rate and rhythm without murmurs, rubs, or gallops. Respiratory: Lungs are clear to auscultation without wheezes, crackles, or rhonchi. Abdomen: Soft and scaphoid with some mild tenderness to palpation. Extremities: No edema. Neuro: Strength and sensation in lower extremities are intact. LABORATORY INFORMATION: CBC shows a white blood cell count of 14,500, hemoglobin of 11.2 g/dL, and a platelet count of 227,000. Comprehensive metabolic panel shows a sodium of 124 mmol/L, potassium is 3.9, BUN of 16, creatinine is 0.71. Total bilirubin of 1.2, AST of 54, alk phos of 579. CRP of 50. Lipase is less than 10. IMAGIN. CT lumbar spine demonstrates an expansile osteolytic lesion at L2 consistent with progression of osseous metastatic disease with epidural extension of the tumor at this level resulting in [id number] narrowing of the central canal. She also has degenerative disk disease and osteoarthritis with multilevel neural foraminal narrowing and narrowing of the central canal as described above. No acute injury noted. 2. Pelvis CT demonstrates no fracture. ASSESSMENT AND PLAN: This is a 73-year-old female with metastatic pancreatic cancer who has been on palliative chemotherapy, but tolerating very poorly with progressive weakness and back pain, found to have a metastatic lesion at the level of L2 with epidural extension causing [id number] central canal stenosis. The patient does not have any focal neurologic deficits that would be explained by this lesion, but certainly her back pain may be a result of this, although there is a chronic component as well. The patient very much would like to complete treatment on an outpatient basis if at all possible. 1. Metastatic pancreatic cancer with osteolytic lesion at L2 with spinal cord compromise - reviewed case with Dr. Salazar and Dr. Neff. Given that the patient does not have any acute neurologic deficit, can attempt to manage this as an outpatient. She did receive dexamethasone in the emergency department and we will discharge her from the emergency department with dexamethasone 4 mg p.o. [address] Neff has graciously agreed to an urgent consultation on 08/30/18, with plans for palliative radiation. 2. In regards to pain management, the patient has very poor tolerance of all opiates as we have tried multiple combinations of pain medications for control of her back pain in the past. She did receive Valium in the emergency department and reports that this helps to relax her and we will try this as a standing prescription for her at home as well. DISPOSITION AND FOLLOWUP PLAN: The patient is being discharged from the emergency department to home with dexamethasone 4 mg p.o. 3 times daily and Valium 5 mg p.o. q.8 hours as needed. She will see Dr. Neff for palliative radiation consultation and stimulation of the lumbar spine on 08/30/18. The patient is instructed if she needs to be seen more urgently or is too weak to make the appointment on Thursday, she is to return to the emergency department via ambulance and admission will be planned for palliative radiation. I did discuss the patient's end-of-life wishes. She confirms that she is DNR/DNI and is no longer interested in continuing with palliative chemotherapy and plans to sign on to hospice following radiation. JOHANNY CORNELIUS [id number]/[facility] #: [id number] SEEMA
== END 2018-08-27 15:39 | disposition home or self-care (01) ==
LOC: ED 11:02
DX: M89.58 Osteolysis, other site (principal); M54.9 Dorsalgia, unspecified; E87.1 Hypo-osmolality and hyponatremia; W10.9XXA Fall (on) (from) unspecified stairs and steps, initial encounter; Y92.9 Unspecified place or not applicable; C25.9 Malignant neoplasm of pancreas, unspecified; I10 Essential (primary) hypertension; B15.9 Hepatitis A without hepatic coma; Z79.891 Long term (current) use of opiate analgesic; G89.29 Other chronic pain; M85.80 Other specified disorders of bone density and structure, unspecified site; C78.7 Secondary malignant neoplasm of liver and intrahepatic bile duct
CPT/HCPCS: 36415; 72131; 72192; 80053; 83690; 85025; 86140; 99232; 99282; 99284; A9270-GY; J1100; J1642; J1885

== ENCOUNTER 2018-08-28 10:13 | Inpatient (IN) | payer MEDICARE ==
[2018-08-28] MEDS ORDERED: diPHENhydraMINE PO* 50 MG PO PRN (11:53)
[2018-08-28] MEDS ORDERED: Prochlorperazine TAB* 10 MG PO PRN (11:53)
[2018-08-28] MEDS ORDERED: Ibuprofen TAB* 800 MG PO PRN (11:53)
[2018-08-28] MEDS: Enoxaparin(*) 40 MG/0.4 ML SYR SUBCUT SCH (12:58)
[2018-08-28] MEDS: Dexamethasone IV* 4 MG/ML 1 ML (4 MG) IV SLOW PU SCH ×2 (13:03→21:46)
[2018-08-28] MEDS: LORazepam TAB(*) 1 MG PO PRN ×3 (13:03→21:46)
[2018-08-28] MEDS: Acetaminophen TAB* 325 MG PO SCH ×3 (13:05→21:46)
[2018-08-28] MEDS: NS 0.9% 1000 ML* 1,000 ML IV SCH (13:08)
[2018-08-28 13:19] LABS: ABS Basophils 0.1 10^3/ul (0-0.2); ABS Eosinophils 0 10^3/ul (0-0.6); ABS Lymphocytes 0.4 10^3/ul (1.0-4.8); ABS Monocytes 0.7 10^3/ul (0-0.8); ABS Nucleated RBC 0 10^3/ul; Eosinophil % 0.2 %; Hematocrit 33 % (35-47); Lymphocyte % 2.7 %; Mean Corpuscular HGB Conc 33 g/dl (31-36); Mean Corpuscular Hemoglobin 31 pg (27-31); Mean Corpuscular Volume 95 fL (80-97); Mean Platelet Volume 7.6 fL (7.4-10.4); Nucleated Red Blood Cells % 0; Platelet Count 200 10^3/ul (150-450); Red Blood Count 3.51 10^6/ul (4.00-5.40); Red Cell Distribution Width 19 % (10.5-15); White Blood Count 16.2 10^3/ul (3.5-10.8)
[2018-08-28] MEDS: Hyoscyamine TAB* 0.125 MG SCH ×2 (13:21→17:28)
--- NOTE | 2018-08-28 13:27 | HP ---
CC: Dr. Salazar; Dr. Neff * ADMISSION HISTORY AND PHYSICAL: DATE OF ADMISSION: 08/28/18 PRIMARY ONCOLOGIST: Dr. Raphael Salazar. ATTENDING PHYSICIAN: Dr. Enrike López.* (DICTATED BY JOHANNY CORNELIUS) CONSULTING RADIATION ONCOLOGIST: Dr. Kirill Neff. ADMITTING PROVIDER: JOHANNY Cornelius CHIEF COMPLAINT: Back pain and weakness. HISTORY OF PRESENT ILLNESS: This is a very pleasant 73-year-old female with metastatic pancreatic cancer who has been receiving palliative chemotherapy, but unfortunately tolerating it very poorly and has been seen in the emergency department on 2 prior occasions this week. She was seen after a fall that she sustained at home earlier this week and had complaints of progressive weakness. There was nothing focal on exam or on her lab findings at that time and she desired discharge home with plans to sign on with hospice if her strength did not improve as she got further out from her last chemotherapy session. She then reported increasing pain and was still profoundly weak and unable to be transported by private car and was subsequently referred back to the emergency department yesterday. She had CT scan of her lumbar spine and pelvis, which unfortunately demonstrated an expansile osteolytic lesion of L2 with moderate severe central canal stenosis with epidural extension of the tumor. On exam yesterday, she had no focal weakness or complaints of incontinence and very much desired trying to manage this as an outpatient. She was discharged with oral dexamethasone and case was discussed with radiation oncologist, Dr. Neff with plan for consultation and simulation for palliative radiation starting on 08/30/18. The patient called this morning reporting that last night was terrible and she was unable to manage her pain effectively at home. Her was unable to help her transfer to a commode without causing a severe amount of pain and she was referred back to the hospital and was subsequently directly admitted. She reports no new weakness or incontinence over the last 18 hours or so since last evaluated. PAST MEDICAL HISTORY: 1. Metastatic pancreatic cancer. 2. Chronic back pain, previously unrelated to her malignancy. HOME MEDICATIONS: 1. Acetaminophen 650 mg p.o. 4 times daily as needed for pain or fever. 2. Digestive enzymes 1 tablet p.o. at mealtime. 3. Diphenhydramine 50 mg p.o. at bedtime. 4. Ibuprofen 800 mg p.o. twice daily as needed for pain. 5. Ativan 0.5 to 1 mg p.o. q.4 hours as needed for anxiety. 6. Magnesium oxide 400 mg p.o. daily. 7. Medical marijuana every 2 hours as needed. 8. Omeprazole 20 mg p.o. daily. 9. Ondansetron 4 mg p.o. q.6 hours as needed for nausea. 10. Potassium chloride 20 mEq p.o. twice daily. 11. Compazine 10 mg p.o. q.6 hours as needed for nausea and vomiting. 12. Dexamethasone 4 mg p.o. 3 times daily. 13. Valium 5 to 10 mg p.o. q.8 hours as needed. 14. Hyoscyamine 0.125 mg sublingual q.6 hours as needed for abdominal cramping. PHYSICAL EXAMINATION GENERAL: This is a fatigued appearing and extremely cachectic 73-year-old female accompanied by her , who appears uncomfortable, but is in no acute distress. INITIAL VITAL SIGNS: Temperature 97.5 degrees Fahrenheit, pulse 79 beats per minute, respiratory rate 16, oxygen saturation 100% on room air, and blood pressure 129/84 mmHg. HEENT: Mucous membranes are dry, but no thrush present. RESPIRATORY: Lungs are clear to auscultation without wheezes, crackles, or rhonchi. CARDIOVASCULAR: Heart has a regular rate and rhythm without murmurs, rubs, or gallops. ABDOMEN: Scaphoid, soft with active bowel sounds, but diffusely tender to palpation. EXTREMITIES: No edema. MUSCULOSKELETAL: Severe muscle atrophy and temporal wasting. SKIN: No concerning rashes or lesions. LABORATORY DATA: Please refer to lab values 08/27/18 cited in consultation from the same date. IMAGING: CT of the lumbar spine dated 08/27/18 demonstrates an expansile osteolytic lesion at L2 consistent with progression of osseous metastatic disease with epidural extension of the tumor at this level resulting in moderate -to-severe narrowing of the central canal. 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 1. 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 Plan to continue with dexamethasone today and tomorrow with palliative radiation starting Thursday, . We will use 4 mg of dexamethasone 3 times daily. She has no acute neurologic deficit. Pain control is our primary goal at the moment. She has extremely poor tolerance of multiple analgesic agents. I have tried nearly every combination of opiate and non-opiate analgesics trying to control her back pain in the past. We will start with steroids as listed above as well as a lidocaine patch and continue her lorazepam and p.r.n. ibuprofen. Can trial Dilaudid as a next step as this has not been previously tried. Her subcutaneous fat layer is not sufficient enough for fentanyl patch to be effective. 2. Metastatic pancreatic cancer - the patient has been receiving palliative chemotherapy, but last cycle was approximately 4 weeks ago and has been held since due to progressive weakness and continued weight loss. The patient desires transition to hospice, which will occur following completion of radiation. 3. Severe protein-calorie malnutrition secondary to poor p.o. intake due to severe abdominal pain and nausea related to her active malignancy and subsequent chemotherapy. 4. Code status: The patient is a DNR/DNI. 5. DVT prophylaxis - 40 mg subcu daily. 6. Healthcare proxy is her . 7. Disposition: The patient is being admitted to inpatient status with anticipated length of stay to be greater than 2 midnights. JOHANNY CORNELIUS [id number]/DEIRDRE #: [id number] SEEMA
[2018-08-28 13:44] LABS: Albumin 3.1 g/dL (3.2-5.2); Albumin/Globulin Ratio 1.4 (1-3); BUN/Creatinine Ratio 29.6 (8-20); Calcium 10.3 mg/dL (8.6-10.3); EGFR Non-African American 81.2 (>60); Globulin 2.2 g/dL (2-4); Potassium 4.2 mmol/L (3.5-5.0); Total Bilirubin 1.4 mg/dL (0.2-1.0); Total Protein 5.3 g/dL (6.4-8.9)
[2018-08-28] MEDS: Lidocaine PATCH 5%* 1 PATCH TRANSDERM SCH (18:07)
[2018-08-28] MEDS: DIGESTIVE PO SCH (19:10)
[2018-08-28] MEDS: [UNRECOGNIZED DRUG - OTHER] PO SCH (19:10)
[2018-08-29] MEDS: LORazepam INJ* 2 MG/ML 1 ML VIAL IV PUSH PRN ×3 (02:21→16:55)
[2018-08-29] MEDS: NS 0.9% 1000 ML* 1,000 ML IV SCH ×2 (02:21→15:56)
[2018-08-29] MEDS: Dexamethasone IV* 4 MG/ML 1 ML (4 MG) IV SLOW PU SCH ×3 (04:49→22:11)
[2018-08-29 05:06] LABS: ABS Basophils 0.1 10^3/ul (0-0.2); ABS Eosinophils 0 10^3/ul (0-0.6); ABS Lymphocytes 0.3 10^3/ul (1.0-4.8); ABS Monocytes 0.2 10^3/ul (0-0.8); ABS Neutrophils 11.9 10^3/ul (1.5-7.7); ABS Nucleated RBC 0 10^3/ul; Eosinophil % 0 %; Hematocrit 32 % (35-47); Hemoglobin 10.6 g/dl (12.0-16.0); Lymphocyte % 2.2 %; Mean Corpuscular HGB Conc 33 g/dl (31-36); Mean Corpuscular Hemoglobin 31 pg (27-31); Mean Corpuscular Volume 95 fL (80-97); Mean Platelet Volume 7.8 fL (7.4-10.4); Nucleated Red Blood Cells % 0; Platelet Count 177 10^3/ul (150-450); Red Cell Distribution Width 19 % (10.5-15); White Blood Count 12.5 10^3/ul (3.5-10.8)
[2018-08-29 05:22] LABS: Albumin 2.9 g/dL (3.2-5.2); Albumin/Globulin Ratio 1.4 (1-3); BUN/Creatinine Ratio 30.4 (8-20); Calcium 9.9 mg/dL (8.6-10.3); EGFR Non-African American 83.9 (>60); Globulin 2.1 g/dL (2-4); Potassium 4.2 mmol/L (3.5-5.0); Total Bilirubin 1.3 mg/dL (0.2-1.0)
[2018-08-29] MEDS: Acetaminophen TAB* 325 MG PO SCH ×3 (09:18→16:49)
[2018-08-29] MEDS: Omeprazole CAP* 20 MG PO SCH (09:19)
[2018-08-29] MEDS: Hyoscyamine TAB* 0.125 MG SCH ×3 (09:19→16:48)
[2018-08-29] MEDS: Magnesium Oxide TAB* 400 MG PO SCH (09:21)
[2018-08-29] MEDS: Lidocaine Patch REMOVE* 1 NOTE MISC PATCH OFF SCH (09:44)
[2018-08-29] MEDS: DIGESTIVE PO SCH ×3 (09:44→17:02)
[2018-08-29] MEDS: Lidocaine PATCH 5%* 1 PATCH TRANSDERM SCH (09:44)
[2018-08-29] MEDS: [UNRECOGNIZED DRUG - OTHER] PO SCH ×3 (09:44→17:02)
--- NOTE | 2018-08-29 10:33 | PN ---
Progress Note - Progress Note Date of Service: 08/29/18 SOAP: Subjective: [She was able to get some rest overnight. Pain seems manageable. No change in neurologic symptoms] Objective: [ Laboratory Results - last 24 hr 08/28/18 08/28/18 08/29/18 11:40 11:40 04:45 WBC 16.2 H 12.5 H RBC 3.51 L 3.40 L Hgb 11.0 L 10.6 L Hct 33 L 32 L MCV 95 95 MCH 31 31 MCHC 33 33 RDW 19 H 19 H Plt Count 200 177 MPV 7.6 7.8 Neut % (Auto) 92.6 95.5 Lymph % (Auto) 2.7 2.2 [place] % (Auto) 4.1 1.8 Eos % (Auto) 0.2 0 Baso % (Auto) 0.4 0.5 Absolute Neuts (auto) 15.0 H 11.9 H Absolute Lymphs (auto) 0.4 L 0.3 L Absolute Monos (auto) 0.7 0.2 Absolute Eos (auto) 0 0 Absolute Basos (auto) 0.1 0.1 Absolute Nucleated RBC 0 0 Nucleated RBC % 0 0 Sodium 123 L Potassium 4.2 Chloride 90 L Carbon Dioxide 21 L Anion Gap 12 H BUN 21 Creatinine 0.71 Est GFR ( Amer) 98.2 Est GFR (Non-Af Amer) 81.2 BUN/Creatinine Ratio 29.6 H Glucose 87 Calcium 10.3 Total Bilirubin 1.40 H AST 52 H ALT 44 Alkaline Phosphatase 602 H Total Protein 5.3 L Albumin 3.1 L Globulin 2.2 Albumin/Globulin Ratio 1.4 08/29/18 04:45 WBC RBC Hgb Hct MCV MCH MCHC RDW Plt Count MPV Neut % (Auto) Lymph % (Auto) [place] % (Auto) Eos % (Auto) Baso % (Auto) Absolute Neuts (auto) Absolute Lymphs (auto) Absolute Monos (auto) Absolute Eos (auto) Absolute Basos (auto) Absolute Nucleated RBC Nucleated RBC % Sodium 125 L Potassium 4.2 Chloride 94 L Carbon Dioxide 22 Anion Gap 9 BUN 21 Creatinine 0.69 Est GFR ( Amer) 101.5 Est GFR (Non-Af Amer) 83.9 BUN/Creatinine Ratio 30.4 H Glucose 119 H Calcium 9.9 Total Bilirubin 1.30 H AST 50 H ALT 45 Alkaline Phosphatase 585 H Total Protein 5.0 L Albumin 2.9 L Globulin 2.1 Albumin/Globulin Ratio 1.4 Acetaminophen (Tylenol Tab*) 650 mg PO QID [facility] Last Admin: 08/29/18 09:18 Dose: 650 mg Dexamethasone Sodium Phosphate (Decadron Iv*) 4 mg IV SLOW PU Q8HR [facility] Last Admin: 08/29/18 04:49 Dose: 4 mg Diphenhydramine HCl (Benadryl Po*) 50 mg PO BEDTIME PRN PRN Reason: SLEEP Last Admin: 08/29/18 04:44 Dose: 50 mg Enoxaparin Sodium (Lovenox(*)) 40 mg SUBCUT Q24H [facility] Last Admin: 08/28/18 12:58 Dose: 40 mg Hydromorphone HCl (Dilaudid Inj1s*) 1 mg IV SLOW PU Q2H PRN PRN Reason: PAIN Hyoscyamine (Anaspaz Tab*) 0.125 mg .SEE ORDER [facility] Last Admin: 08/29/18 09:19 Dose: 0.125 mg Sodium Chloride (Ns 0.9% 1000 Ml*) 1,000 mls @ 75 mls/hr IV PER RATE [facility] Last Admin: 08/29/18 02:21 Dose: 75 mls/hr Ibuprofen (Motrin Tab*) 800 mg PO BID PRN PRN Reason: PAIN Last Admin: 08/28/18 13:04 Dose: 800 mg Lidocaine (Lidoderm 5% Patch*) 1 patch TRANSDERM DAILY [facility] Last Admin: 08/29/18 09:44 Dose: 1 patch Lorazepam (Ativan Inj*) 1 mg IV PUSH Q4H PRN PRN Reason: ANXIETY Last Admin: 08/29/18 09:21 Dose: 1 mg Magnesium Oxide (Magox 400 Tab*) 400 mg PO DAILY [facility] Last Admin: 08/29/18 09:21 Dose: 400 mg (Digestive 8/L. Acidoph/Pectin [ Digestive Enzymes Tablet] 1 Tab) 1 tab PO [facility] Last Admin: 08/29/18 09:44 Dose: Not Given Omeprazole (Prilosec Cap*) 20 mg PO DAILY [facility] Last Admin: 08/29/18 09:19 Dose: 20 mg Ondansetron HCl (Zofran Inj*) 4 mg IV Q4H PRN PRN Reason: NAUSEA/VOMITING Ondansetron HCl (Zofran Odt Tab*) 4 mg PO Q6H PRN PRN Reason: NAUSEA Pharmacy Profile Note (Lidocaine Patch Remove*) 1 note PATCH OFF 2100 [facility]ARR[facility] Last Admin: 08/29/18 09:44 Dose: 1 note Prochlorperazine (Compazine Tab*) 10 mg PO Q6H PRN PRN Reason: NAUSEA Vital Signs: Temp Pulse Resp BP Pulse Ox 97.2 F 80 14 115/74 98 08/29/18 02:16 08/29/18 02:16 08/29/18 09:21 08/29/18 02:16 08/29/18 02:16 Exam: Gen: Chronically ill and cachectic in appearance, lethargic, but can carry on conversation. Accompanied by her HEENT: dry MM CV: RRR, no m/r/g Resp: CTA, no w/c/r Abd: soft, diffusely TTP Ext: no edema Neuro: grossly intact, FROM of all extremities] Assessment: [73 yo female with metastatic pancreatic CA admitted with L2 lesion causing cord compromise with plans for palliative radiation.] Plan: [1. L2 metastatic lesion with epidural extension and cord compromise - cont IV dexamethasone - palliative RT to start tomorrow - cont with pain control - very intolerant of multiple analgesics -- lidocaine patch in place, prn NSAIDs, prn Ativan, prn Dilaudid (which she has not trialed yet) 2. Metastatic pancreatic CA - palliative chemotherapy poorly tolerated and held for last couple of weeks with continued decline in performance status - plan for Hospice following radiation Dispo: palliative RT followed by discharge to Hospice]
[2018-08-29] MEDS: Ondansetron INJ* 2 MG/ML VIAL IV PRN ×2 (12:24→20:27)
[2018-08-29] MEDS: Enoxaparin(*) 40 MG/0.4 ML SYR SUBCUT SCH (12:34)
[2018-08-29] MEDS: HYDROmorphone INJ1* 1 MG/ML SYRINGE IV SLOW PU PRN (20:27)
[2018-08-30] MEDS: Lidocaine Patch REMOVE* 1 NOTE MISC PATCH OFF SCH ×2 (02:30→21:22)
[2018-08-30] MEDS: LORazepam INJ* 2 MG/ML 1 ML VIAL IV PUSH PRN ×2 (02:53→09:17)
[2018-08-30] MEDS: Acetaminophen TAB* 325 MG PO SCH ×5 (03:02→21:21)
[2018-08-30] MEDS: NS 0.9% 1000 ML* 1,000 ML IV SCH ×2 (05:46→21:27)
[2018-08-30 05:48] LABS: ABS Basophils 0 10^3/ul (0-0.2); ABS Eosinophils 0 10^3/ul (0-0.6); ABS Lymphocytes 0.3 10^3/ul (1.0-4.8); ABS Monocytes 0.4 10^3/ul (0-0.8); ABS Neutrophils 17.8 10^3/ul (1.5-7.7); ABS Nucleated RBC 0 10^3/ul; Eosinophil % 0 %; Hematocrit 33 % (35-47); Hemoglobin 11.1 g/dl (12.0-16.0); Lymphocyte % 1.4 %; Mean Corpuscular HGB Conc 34 g/dl (31-36); Mean Corpuscular Hemoglobin 32 pg (27-31); Mean Corpuscular Volume 96 fL (80-97); Mean Platelet Volume 8.1 fL (7.4-10.4); Nucleated Red Blood Cells % 0; Platelet Count 188 10^3/ul (150-450); Red Blood Count 3.47 10^6/ul (4.00-5.40); Red Cell Distribution Width 19 % (10.5-15); White Blood Count 18.5 10^3/ul (3.5-10.8)
[2018-08-30 06:09] LABS: Albumin 2.8 g/dL (3.2-5.2); Albumin/Globulin Ratio 1.4 (1-3); BUN/Creatinine Ratio 33.9 (8-20); Calcium 9.7 mg/dL (8.6-10.3); EGFR Non-African American 94.9 (>60); Total Protein 4.8 g/dL (6.4-8.9)
[2018-08-30] MEDS: Dexamethasone IV* 4 MG/ML 1 ML (4 MG) IV SLOW PU SCH ×3 (06:18→21:19)
[2018-08-30] MEDS: Magnesium Oxide TAB* 400 MG PO SCH ×2 (09:15→10:46)
[2018-08-30] MEDS: Hyoscyamine TAB* 0.125 MG SCH ×3 (09:18→17:10)
[2018-08-30] MEDS: DIGESTIVE PO SCH ×3 (09:19→17:12)
[2018-08-30] MEDS: [UNRECOGNIZED DRUG - OTHER] PO SCH ×3 (09:19→17:12)
[2018-08-30] MEDS: Omeprazole CAP* 20 MG PO SCH ×2 (09:29→10:44)
[2018-08-30] MEDS: Lidocaine PATCH 5%* 1 PATCH TRANSDERM SCH (09:29)
--- NOTE | 2018-08-30 11:13 | PN ---
Progress Note - Progress Note Date of Service: 08/30/18 SOAP: Subjective: []Cont.'s to have significant pain in back, laying flat is the comfortable position. Dilaudid did work well for her. Ativan is helpful in a lot of different ways. had chest pain yesterday and refused ER eval. This AM pt. went to ER and per nursing may need admission. RT consult this AM with plan for sim this evening. Lorenza's daughter lives in [place], currently with likely induction in very near future. Medications: Acetaminophen (Tylenol Tab*) 650 mg PO QID [facility] Last Admin: 08/30/18 09:19 Dose: 650 mg Dexamethasone Sodium Phosphate (Decadron Iv*) 4 mg IV SLOW PU Q8HR ON LICENSE OF [facility] Last Admin: 08/30/18 06:18 Dose: 4 mg Diphenhydramine HCl (Benadryl Po*) 50 mg PO BEDTIME PRN PRN Reason: SLEEP Last Admin: 08/29/18 04:44 Dose: 50 mg Enoxaparin Sodium (Lovenox(*)) 40 mg SUBCUT Q24H ON LICENSE OF [facility] Last Admin: 08/29/18 12:34 Dose: 40 mg Heparin Sodium (Porcine) (Heparin Flush Port (Ivad)) 5 ml FLUSH DAILY ON LICENSE OF [facility]; Protocol Hydromorphone HCl (Dilaudid Inj1s*) 1 mg IV SLOW PU Q2H PRN PRN Reason: PAIN Last Admin: 08/29/18 20:27 Dose: 1 mg Hyoscyamine (Anaspaz Tab*) 0.125 mg .SEE ORDER AC ON LICENSE OF [facility] Last Admin: 08/30/18 09:18 Dose: 0.125 mg Sodium Chloride (Ns 0.9% 1000 Ml*) 1,000 mls @ 75 mls/hr IV PER RATE ON [facility] Last Admin: 08/30/18 05:46 Dose: 75 mls/hr Ibuprofen (Motrin Tab*) 800 mg PO BID PRN PRN Reason: PAIN Last Admin: 08/28/18 13:04 Dose: 800 mg Lidocaine (Lidoderm 5% Patch*) 1 patch TRANSDERM DAILY ON [facility] Last Admin: 08/30/18 09:29 Dose: 1 patch Lorazepam (Ativan Inj*) 1 mg IV PUSH Q2H PRN PRN Reason: Anxiety/insomnia/discomfort Magnesium Oxide (Magox 400 Tab*) 400 mg PO DAILY ON [facility] Last Admin: 08/30/18 10:46 Dose: Not Given (Digestive 8/L. Acidoph/Pectin [ Digestive Enzymes Tablet] 1 Tab) 1 tab PO AC ON [facility] Last Admin: 08/30/18 09:19 Dose: Not Given Omeprazole (Prilosec Cap*) 20 mg PO DAILY ON [facility] Last Admin: 08/30/18 10:44 Dose: Not Given Ondansetron HCl (Zofran Inj*) 4 mg IV Q4H PRN PRN Reason: NAUSEA/VOMITING Last Admin: 08/29/18 20:27 Dose: 4 mg Ondansetron HCl (Zofran Odt Tab*) 4 mg PO Q6H PRN PRN Reason: NAUSEA Pharmacy Profile Note (Lidocaine Patch Remove*) 1 note PATCH OFF 2100 ON LICENSE OF [facility] Last Admin: 08/30/18 02:30 Dose: 1 note Prochlorperazine (Compazine Tab*) 10 mg PO Q6H PRN PRN Reason: NAUSEA Objective: [] Vital Signs Temp Pulse Resp BP Pulse Ox 97.0 F 80 14 108/69 99 08/30/18 02:45 08/30/18 02:45 08/30/18 10:45 08/30/18 02:45 08/30/18 02:45 A&Ox3 JAMES, notable weak Cachectic with muscle wasting Resp. even and non-labored Limited assessment due to palliative nature of visit Laboratory Results - last 24 hr 08/30/18 08/30/18 05:00 05:00 WBC 18.5 H RBC 3.47 L Hgb 11.1 L Hct 33 L MCV 96 MCH 32 H MCHC 34 RDW 19 H Plt Count 188 MPV 8.1 Neut % (Auto) 96.3 Lymph % (Auto) 1.4 [place] % (Auto) 2.2 Eos % (Auto) 0 Baso % (Auto) 0.1 Absolute Neuts (auto) 17.8 H Absolute Lymphs (auto) 0.3 L Absolute Monos (auto) 0.4 Absolute Eos (auto) 0 Absolute Basos (auto) 0 Absolute Nucleated RBC 0 Nucleated RBC % 0 Sodium 129 L Potassium 4.0 Chloride 98 L Carbon Dioxide 23 Anion Gap 8 BUN 21 Creatinine 0.62 Est GFR ( Amer) 114.8 Est GFR (Non-Af Amer) 94.9 BUN/Creatinine Ratio 33.9 H Glucose 104 H Calcium 9.7 Total Bilirubin 1.00 AST 42 H ALT 42 Alkaline Phosphatase 546 H Total Protein 4.8 L Albumin 2.8 L Globulin 2.0 Albumin/Globulin Ratio 1.4 Assessment: []73 yo female with metastatic pancreatic CA admitted with L2 lesion causing cord compromise with plans for palliative radiation. Discussed current diagnosis and prognosis, while she is aware that her life expectancy is limited she admits that she may not have truly understood how much she has declined. Discussed that once pain improved she may improve as well, though with her current nutritional status I suspect her prognosis is limited to weeks. Plan: []1. Cord compression: plan for palliative RT as above - cont. current pain meds 2. Metastatic Cancer: prognosis likely weeks at most - home with hospice after RT, consult entered though may require residence if needs cont.'d IV meds - improvement with RT will be telling - offered [employer] visit which Lorenza was open to as she is very tearful at needing to talk with her daughter, she is a [employer]ist DNR
[2018-08-30] MEDS: HYDROmorphone INJ1* 1 MG/ML SYRINGE IV SLOW PU PRN ×2 (12:31→21:22)
[2018-08-30] MEDS: Enoxaparin(*) 40 MG/0.4 ML SYR SUBCUT SCH (13:21)
--- NOTE | 2018-08-30 16:08 | CONSULT ---
Palliative / Hospice Consult Ordering Provider: Nickie Weinberg - PCP Jasmyn - Subjective Code Status: DNR Advance Directives Location: [facility] KHANNA Part A Completed: Yes Date: 08/28/18 - Dr. Bruno KHANNA Part E Completed:: Yes Date: 08/30/18 - by Dr. Gillespie with [facility] - History or Present Illness History or Present Illness: 73 yo female with metastatic pancreatic cancer presents to hospital with increasing pain and weakness. She was diagnosed in December and underwent palliative chemo which she had to stop 4wks ago because she was not able to tolerate it. She has a history of back pain for which she is seen in pain clinic and receives injections but has been experiencing worse pain and a ct scan was done which showed osteolytic lesion and stenosis at L2. She was seen by radiation oncologist and will undergo palliative radiation treatment for pain relief tonight. Oncology feels she has a few weeks to live. Lab Values: Abnormal Lab Results 08/30/18 08/30/18 05:00 05:00 WBC 18.5 H RBC 3.47 L Hgb 11.1 L Hct 33 L MCV 96 MCH 32 H MCHC 34 RDW 19 H Plt Count 188 MPV 8.1 Neut % (Auto) 96.3 Lymph % (Auto) 1.4 [place] % (Auto) 2.2 Eos % (Auto) 0 Baso % (Auto) 0.1 Absolute Neuts (auto) 17.8 H Absolute Lymphs (auto) 0.3 L Absolute Monos (auto) 0.4 Absolute Eos (auto) 0 Absolute Basos (auto) 0 Absolute Nucleated RBC 0 Nucleated RBC % 0 Sodium 129 L Potassium 4.0 Chloride 98 L Carbon Dioxide 23 Anion Gap 8 BUN 21 Creatinine 0.62 Est GFR ( Amer) 114.8 Est GFR (Non-Af Amer) 94.9 BUN/Creatinine Ratio 33.9 H Glucose 104 H Calcium 9.7 Total Bilirubin 1.00 AST 42 H ALT 42 Alkaline Phosphatase 546 H Total Protein 4.8 L Albumin 2.8 L Globulin 2.0 Albumin/Globulin Ratio 1.4 Laboratory Last Values WBC 18.5 10^3/ul (3.5-10.8) H 08/30/18 05:00 RBC 3.47 10^6/ul (4.00-5.40) L 08/30/18 05:00 Hgb 11.1 g/dl (12.0-16.0) L 08/30/18 05:00 Hct 33 % (35-47) L 08/30/18 05:00 MCV 96 fL (80-97) 08/30/18 05:00 MCH 32 pg (27-31) H 08/30/18 05:00 MCHC 34 g/dl (31-36) 08/30/18 05:00 RDW 19 % (10.5-15) H 08/30/18 05:00 Plt Count 188 10^3/ul (150-450) 08/30/18 05:00 MPV 8.1 fL (7.4-10.4) 08/30/18 05:00 Neut % (Auto) 96.3 % 08/30/18 05:00 Lymph % (Auto) 1.4 % 08/30/18 05:00 Coryell % (Auto) 2.2 % 08/30/18 05:00 Eos % (Auto) 0 % 08/30/18 05:00 Baso % (Auto) 0.1 % 08/30/18 05:00 Absolute Neuts (auto) 17.8 10^3/ul (1.5-7.7) H 08/30/18 05:00 Absolute Lymphs (auto) 0.3 10^3/ul (1.0-4.8) L 08/30/18 05:00 Absolute Monos (auto) 0.4 10^3/ul (0-0.8) 08/30/18 05:00 Absolute Eos (auto) 0 10^3/ul (0-0.6) 08/30/18 05:00 Absolute Basos (auto) 0 10^3/ul (0-0.2) 08/30/18 05:00 Absolute Nucleated RBC 0 10^3/ul 08/30/18 05:00 Nucleated RBC % 0 08/30/18 05:00 Sodium 129 mmol/L (135-145) L 08/30/18 05:00 Potassium 4.0 mmol/L (3.5-5.0) 08/30/18 05:00 Chloride 98 mmol/L (101-111) L 08/30/18 05:00 Carbon Dioxide 23 mmol/L (22-32) 08/30/18 05:00 Anion Gap 8 mmol/L (2-11) 08/30/18 05:00 BUN 21 mg/dL (6-24) 08/30/18 05:00 Creatinine 0.62 mg/dL (0.51-0.95) 08/30/18 05:00 Est GFR ( Amer) 114.8 (>60) 08/30/18 05:00 Est GFR (Non-Af Amer) 94.9 (>60) 08/30/18 05:00 BUN/Creatinine Ratio 33.9 (8-20) H 08/30/18 05:00 Glucose 104 mg/dL (70-100) H 08/30/18 05:00 Calcium 9.7 mg/dL (8.6-10.3) 08/30/18 05:00 Total Bilirubin 1.00 mg/dL (0.2-1.0) 08/30/18 05:00 AST 42 U/L (13-39) H 08/30/18 05:00 ALT 42 U/L (7-52) 08/30/18 05:00 Alkaline Phosphatase 546 U/L (34-104) H 08/30/18 05:00 Total Protein 4.8 g/dL (6.4-8.9) L 08/30/18 05:00 Albumin 2.8 g/dL (3.2-5.2) L 08/30/18 05:00 Globulin 2.0 g/dL (2-4) 08/30/18 05:00 Albumin/Globulin Ratio 1.4 (1-3) 08/30/18 05:00 - Objective Active Medications: Acetaminophen (Tylenol Tab*) 650 mg PO QID [facility] Last Admin: 08/30/18 13:34 Dose: Not Given Dexamethasone Sodium Phosphate (Decadron Iv*) 4 mg IV SLOW PU Q8HR [facility] Last Admin: 08/30/18 13:33 Dose: 4 mg Diphenhydramine HCl (Benadryl Po*) 50 mg PO BEDTIME PRN PRN Reason: SLEEP Last Admin: 08/29/18 04:44 Dose: 50 mg Enoxaparin Sodium (Lovenox(*)) 40 mg SUBCUT Q24H [facility] Last Admin: 08/30/18 13:21 Dose: 40 mg Heparin Sodium (Porcine) (Heparin Flush Port (Ivad)) 5 ml FLUSH DAILY [facility]; Protocol Last Admin: 08/30/18 12:35 Dose: 5 ml Hydromorphone HCl (Dilaudid Inj1s*) 1 mg IV SLOW PU Q2H PRN PRN Reason: PAIN Last Admin: 08/30/18 12:31 Dose: 1 mg Hyoscyamine (Anaspaz Tab*) 0.125 mg .SEE ORDER AC [facility] Last Admin: 08/30/18 13:34 Dose: Not Given Sodium Chloride (Ns 0.9% 1000 Ml*) 1,000 mls @ 75 mls/hr IV PER RATE [facility] Last Admin: 08/30/18 05:46 Dose: 75 mls/hr Ibuprofen (Motrin Tab*) 800 mg PO BID PRN PRN Reason: PAIN Last Admin: 08/28/18 13:04 Dose: 800 mg Lidocaine (Lidoderm 5% Patch*) 1 patch TRANSDERM DAILY [facility] Last Admin: 08/30/18 09:29 Dose: 1 patch Lorazepam (Ativan Inj*) 1 mg IV PUSH Q2H PRN PRN Reason: Anxiety/insomnia/discomfort Magnesium Oxide (Magox 400 Tab*) 400 mg PO DAILY [facility] Last Admin: 08/30/18 10:46 Dose: Not Given (Digestive 8/L. Acidoph/Pectin [ Digestive Enzymes Tablet] 1 Tab) 1 tab PO [facility] Last Admin: 08/30/18 13:11 Dose: Not Given Omeprazole (Prilosec Cap*) 20 mg PO DAILY [facility] Last Admin: 08/30/18 10:44 Dose: Not Given Ondansetron HCl (Zofran Inj*) 4 mg IV Q4H PRN PRN Reason: NAUSEA/VOMITING Last Admin: 08/29/18 20:27 Dose: 4 mg Ondansetron HCl (Zofran Odt Tab*) 4 mg PO Q6H PRN PRN Reason: NAUSEA Pharmacy Profile Note (Lidocaine Patch Remove*) 1 note PATCH OFF 2100 [facility] Last Admin: 08/30/18 02:30 Dose: 1 note Prochlorperazine (Compazine Tab*) 10 mg PO Q6H PRN PRN Reason: NAUSEA Vital Signs: Vital Signs: Temp Pulse Resp BP Pulse Ox 97.6 F 89 12 110/75 99 08/30/18 11:05 08/30/18 11:05 08/30/18 13:20 08/30/18 11:05 08/30/18 11:05 Patient Weight: Weight 46.13 kg Intake and Output: Intake & Output 08/28/18 08/29/18 08/30/18 08/31/18 06:59 06:59 06:59 06:59 Intake Total 1347 1663 Output Total 0 Balance 1347 1663 Weight 46.13 kg Intake: IV Fluids 1287 1663 NS (0.9%) 1287 1663 Oral 60 0 Output: Urine 0 Other: Estimated Void Small # Bowel Movements 1 0 Estimated Stool Amount Medium # Voids 0 1 ADLs: Meal Record Start: 08/28/18 11: 17 Freq: DAILY@0900,1400,1800 Status: Active Protocol: Created 08/28/18 11:17 System (Rec: 08/28/18 11:17 System MED-M09) Document 08/28/18 14:00 [id number] (Rec: 08/28/18 14:59 [id number] MED-C09) Document 08/29/18 09:00 [id number] (Rec: 08/29/18 09:12 [id number] MED-C16) Document 08/29/18 13:45 [id number] (Rec: 08/29/18 13:46 [id number] MED-C16) Intake and Output Start: 08/28/18 11: 17 Freq: DAILY@0600,1400,2200 Status: Active Protocol: Created 08/28/18 11:17 System (Rec: 08/28/18 11:17 System MED-M09) Document 08/28/18 14:00 [id number] (Rec: 08/28/18 14:59 [id number] MED-C09) Document 08/29/18 06:00 [id number] (Rec: 08/29/18 06:13 [id number] MED-C11) Document 08/29/18 13:45 [id number] (Rec: 08/29/18 13:46 [id number] MED-C16) Document 08/29/18 22:00 [id number] (Rec: 08/29/18 22:27 [id number] MED-C09) Document 08/30/18 05:37 [id number] (Rec: 08/30/18 05:38 [id number] MED-C11) Head: Normal Eyes: No Scleral Icterus Ears/Nose/Mouth/Throat: NL Teeth, Lips, Gums Neck: NL Appearance and Movements; NL JVP Cardiovascular: NL Sounds; No Murmurs; No JVD Respiratory: Clear to Auscultation Abdominal: NL Sounds; No Tenderness; No Distention Extremities: - - trace leg edema Neurological: Alert and Oriented x 3 - very drowsy due to pain meds - Assessment Assessment: 73 yo female with metastatic pancreatic cancer who is requesting hospice care - Plan Consult Plan (MU): Hospice Plan: Long discussion with Kirill who is her health care proxy. Pt slept through the discussion but is arousable to voice and touch. Pt currently is getting relief with Dilaudid and will have palliative radiation therapy today. Unfortunately, Kirill has had an episode of chest pain and was admitted to the hospital but he has been allowed to visit with his where I met him. Pt wants to go home to receive hospice. has nursing home insurance and wants to look into getting more help at home if that is not an option he would like to pursue hospice residence. MOLST form was updated to comply with patient wishes of comfort care although still feels that there could be a miracle cure like immunotherapy. He was very tearful about the prospect of his dying. It was explained to the that he can change his mind about the MOLST form or hospice at anytime. Patient and her are Buddhists and part of the time was discussing end of life issues pertaining to cremation and reading to patient from a Islam text which is permissible. Pt is a candidate for hospice care based on her diagnosis of metastatic pancreatic cancer. I will clarify on Thursday(09/01) about who will make the referral to hospice either PCP Dr. Vines or Oncology. - Time On Unit Date of Evaluation: 08/30/18 Hospice Consult Time in: 02:30 Hospice Consult Time Out: 04:00 Hospice Consult Time Total: 90
--- NOTE | 2018-08-30 19:10 | RADMED ---
CC: Dr. Salazar; Radiation/Oncology * RADIATION ONCOLOGY INPATIENT CONSULTATION NOTE: DATE OF CONSULT: 08/30/18 - ROOM #441 DIAGNOSES: Metastatic pancreatic adenocarcinoma, AJCC stage IV, performance status ECOG 3. HISTORY OF PRESENT ILLNESS: Lorenza Washington is a 73-year-old woman diagnosed with metastatic pancreatic cancer in the spring. She has undergone treatment with chemotherapy, initially FOLFIRINOX and more recently gemcitabine and Abraxane. She has had significant decline in performance status and difficulty tolerating therapy, and also progression of disease with significant recent increase in back pain. On 08/27/18, she underwent CT of the lumbar spine and pelvis which show expansile lytic lesion in the L2 with epidural extension. She is referred for consideration of palliative radiation therapy, and has been readmitted to the hospital for pain control for that problem. She has anorexia and weight loss, global weakness, and poorly controlled pain in the mid lower back consistent with known lesion at L2. PAST MEDICAL HISTORY: 1. Pancreatic cancer, as in history of present illness. 2. History of hypertension. MEDICATIONS: As per the inpatient record. ALLERGIES: NEOSPORIN. FAMILY HISTORY: Significant for her mother with breast cancer. PHYSICAL EXAM: Vital Signs: Temperature 97.6, pulse rate 89, respiratory rate 18, oxygen saturation 99% on room air, blood pressure 110/75. General: She is awake, she is alert and oriented, cachectic. HEENT: Normocephalic, atraumatic. Sclerae are anicteric. Neck is supple. Full range of motion. Midline trachea. No masses palpable on the neck. Lungs: With symmetric air entry bilaterally. Cardiovascular: S1, S2 regular. Abdomen: Soft, nontender. Musculoskeletal: Tenderness to palpation over the upper lumbar spine, reproducing her most significant pain problem. DIAGNOSTIC STUDIES/LAB DATA: Pathology and Radiology: Reviewed, as in the history of present illness. ASSESSMENT AND PLAN: Lorenza Washington is a 73-year-old woman with progressive metastatic pancreatic cancer with a painful destructive lesion in the L2 vertebral body. I did review her history as well as the pathologic and radiographic findings, and discussed at some length with the patient, as she is already well informed and familiar. We reviewed the situation in some detail, with the majority of our discussion focused on her situation, and the potential use of palliative radiation therapy. I described the logistics and rationale for that treatment, risks, benefits, and alternatives as well as the acute and long-term frequent and uncommon toxicities. I did answer her questions to the best of my ability. She is inclined to proceed with palliative radiation therapy as discussed, and did sign informed consent. She will undergo CT simulation today to facilitate treatment planning. For her situation, I recommend 800 cGy in a single fraction, planned to be delivered 09/01/18. Thank you for giving me the opportunity to participate in the care of this very pleasant patient. [id number]/[facility] #: [id number] MTDD
[2018-08-30] MEDS: Ondansetron ODT TAB* 4 MG PO PRN (21:18)
[2018-08-31] MEDS: HYDROmorphone INJ1* 1 MG/ML SYRINGE IV SLOW PU PRN ×2 (03:06→16:17)
[2018-08-31] MEDS: Ondansetron ODT TAB* 4 MG PO PRN (03:08)
[2018-08-31] MEDS: Dexamethasone IV* 4 MG/ML 1 ML (4 MG) IV SLOW PU SCH ×3 (05:48→22:06)
[2018-08-31] MEDS: DIGESTIVE PO SCH ×3 (07:51→16:57)
[2018-08-31] MEDS: [UNRECOGNIZED DRUG - OTHER] PO SCH ×3 (07:51→16:57)
[2018-08-31] MEDS: Hyoscyamine TAB* 0.125 MG SCH ×3 (08:12→16:22)
[2018-08-31] MEDS: Acetaminophen TAB* 325 MG PO SCH ×4 (08:53→22:06)
[2018-08-31] MEDS: Magnesium Oxide TAB* 400 MG PO SCH (08:57)
[2018-08-31] MEDS: Omeprazole CAP* 20 MG PO SCH (08:57)
[2018-08-31] MEDS: Lidocaine PATCH 5%* 1 PATCH TRANSDERM SCH (08:57)
[2018-08-31] MEDS: HYDROmorphone INJ1* 1 MG/ML SYRINGE IV PRN ×2 (09:17→12:35)
[2018-08-31] MEDS: NS 0.9% 1000 ML* 1,000 ML IV SCH ×2 (10:08→23:08)
--- NOTE | 2018-08-31 11:24 | PN ---
Progress Note - Progress Note Date of Service: 08/31/18 SOAP: Subjective: []Pain is better today. Not eating, not hungry. Has dry mouth. Had grandchild born this week. Acetaminophen (Tylenol Tab*) 650 mg PO QID [facility] Last Admin: 08/31/18 08:53 Dose: 650 mg Dexamethasone Sodium Phosphate (Decadron Iv*) 4 mg IV SLOW PU Q8HR [facility] Last Admin: 08/31/18 05:48 Dose: 4 mg Diphenhydramine HCl (Benadryl Po*) 50 mg PO BEDTIME PRN PRN Reason: SLEEP Last Admin: 08/29/18 04:44 Dose: 50 mg Enoxaparin Sodium (Lovenox(*)) 40 mg SUBCUT Q24H [facility] Last Admin: 08/30/18 13:21 Dose: 40 mg Heparin Sodium (Porcine) (Heparin Flush Port (Ivad)) 5 ml FLUSH DAILY [facility]; Protocol Last Admin: 08/31/18 09:04 Dose: Not Given Hydromorphone HCl (Dilaudid Inj1s*) 1 mg IV SLOW PU Q2H PRN PRN Reason: PAIN Last Admin: 08/31/18 03:06 Dose: 1 mg Hydromorphone HCl (Dilaudid Inj1s*) 0.5 mg IV Q2H PRN PRN Reason: PAIN MODERATE Last Admin: 08/31/18 09:17 Dose: 0.5 mg Hyoscyamine (Anaspaz Tab*) 0.125 mg .SEE ORDER AC [facility] Last Admin: 08/31/18 08:12 Dose: 0.125 mg Sodium Chloride (Ns 0.9% 1000 Ml*) 1,000 mls @ 75 mls/hr IV PER RATE [facility] Last Admin: 08/31/18 10:08 Dose: 75 mls/hr Ibuprofen (Motrin Tab*) 800 mg PO BID PRN PRN Reason: PAIN Last Admin: 08/28/18 13:04 Dose: 800 mg Lidocaine (Lidoderm 5% Patch*) 1 patch TRANSDERM DAILY [facility] Last Admin: 08/31/18 08:57 Dose: 1 patch Lorazepam (Ativan Inj*) 1 mg IV PUSH Q2H PRN PRN Reason: Anxiety/insomnia/discomfort Magnesium Oxide (Magox 400 Tab*) 400 mg PO DAILY [facility] Last Admin: 08/31/18 08:57 Dose: 400 mg (Digestive 8/L. Acidoph/Pectin [ Digestive Enzymes Tablet] 1 Tab) 1 tab PO AC [facility] Last Admin: 08/31/18 07:51 Dose: Not Given Omeprazole (Prilosec Cap*) 20 mg PO DAILY [facility] Last Admin: 08/31/18 08:57 Dose: 20 mg Ondansetron HCl (Zofran Inj*) 4 mg IV Q4H PRN PRN Reason: NAUSEA/VOMITING Last Admin: 08/29/18 20:27 Dose: 4 mg Ondansetron HCl (Zofran Odt Tab*) 4 mg PO Q6H PRN PRN Reason: NAUSEA Last Admin: 08/31/18 03:08 Dose: 4 mg Pharmacy Profile Note (Lidocaine Patch Remove*) 1 note PATCH OFF 2100 [facility] Last Admin: 08/30/18 21:22 Dose: 1 note Prochlorperazine (Compazine Tab*) 10 mg PO Q6H PRN PRN Reason: NAUSEA Objective: [] Vital Signs Temp Pulse Resp BP Pulse Ox 97.4 F 81 16 115/75 99 08/31/18 02:57 08/31/18 02:57 08/31/18 09:17 08/31/18 02:57 08/31/18 02:57 HEENT dry but no lesions CTA RRR S1S2 +BS thin muscle wasting grossly NF Assessment: []73 yo female with metastatic pancreatic CA admitted with L2 lesion causing cord compromise with plans for palliative radiation. Plan is for hospice after XRT. admitted for chest pain and they are sharing a room. Plan: []1. Cord compression: plan for palliative RT possibly tomorrow. 2. Metastatic Cancer: prognosis likely weeks at most - home with hospice after RT 3. DNR
[2018-08-31] MEDS: Enoxaparin(*) 40 MG/0.4 ML SYR SUBCUT SCH (12:56)
[2018-08-31] MEDS: Ondansetron INJ* 2 MG/ML VIAL IV PRN (16:17)
[2018-08-31] MEDS: Lidocaine Patch REMOVE* 1 NOTE MISC PATCH OFF SCH (22:06)
[2018-09-01] MEDS: Dexamethasone IV* 4 MG/ML 1 ML (4 MG) IV SLOW PU SCH ×3 (06:09→21:38)
[2018-09-01] MEDS: HYDROmorphone INJ1* 1 MG/ML SYRINGE IV SLOW PU PRN ×2 (06:17→15:41)
[2018-09-01] MEDS: LORazepam INJ* 2 MG/ML 1 ML VIAL IV PUSH PRN ×2 (06:18→12:04)
[2018-09-01 06:34] LABS: Hematocrit 35 % (35-47); Hemoglobin 11.1 g/dl (12.0-16.0); Mean Corpuscular HGB Conc 32 g/dl (31-36); Mean Corpuscular Hemoglobin 31 pg (27-31); Mean Corpuscular Volume 97 fL (80-97); Platelet Count 185 10^3/ul (150-450); Red Blood Count 3.59 10^6/ul (4.00-5.40); Red Cell Distribution Width 20 % (10.5-15); White Blood Count 23.8 10^3/ul (3.5-10.8)
[2018-09-01 06:36] LABS: ABS Basophils 0 10^3/ul (0-0.2); ABS Eosinophils 0 10^3/ul (0-0.6); ABS Lymphocytes 0.2 10^3/ul (1.0-4.8); ABS Monocytes 0.6 10^3/ul (0-0.8); ABS Nucleated RBC 0 10^3/ul; Eosinophil % 0 %; Nucleated Red Blood Cells % 0.1
[2018-09-01 06:55] LABS: Albumin 2.7 g/dL (3.2-5.2); Albumin/Globulin Ratio 1.4 (1-3); BUN/Creatinine Ratio 38.7 (8-20); Calcium 9.4 mg/dL (8.6-10.3); EGFR Non-African American 94.9 (>60); Globulin 1.9 g/dL (2-4); Potassium 3.9 mmol/L (3.5-5.0); Total Bilirubin 1.2 mg/dL (0.2-1.0); Total Protein 4.6 g/dL (6.4-8.9)
[2018-09-01] MEDS: Hyoscyamine TAB* 0.125 MG SCH ×3 (09:25→17:56)
[2018-09-01] MEDS: Lidocaine PATCH 5%* 1 PATCH TRANSDERM SCH (09:26)
[2018-09-01] MEDS: Magnesium Oxide TAB* 400 MG PO SCH (09:26)
[2018-09-01] MEDS: Acetaminophen TAB* 325 MG PO SCH ×5 (09:26→21:38)
[2018-09-01] MEDS: Omeprazole CAP* 20 MG PO SCH (09:26)
[2018-09-01] MEDS: DIGESTIVE PO SCH ×3 (09:41→18:17)
[2018-09-01] MEDS: [UNRECOGNIZED DRUG - OTHER] PO SCH ×3 (09:41→18:17)
[2018-09-01] MEDS: Enoxaparin(*) 40 MG/0.4 ML SYR SUBCUT SCH (12:08)
[2018-09-01] MEDS: NS 0.9% 1000 ML* 1,000 ML IV SCH (13:42)
[2018-09-01] MEDS: Ondansetron INJ* 2 MG/ML VIAL IV PRN (15:40)
[2018-09-01] MEDS: HYDROmorphone INJ1* 1 MG/ML SYRINGE IV PRN (21:38)
[2018-09-01] MEDS: Lidocaine Patch REMOVE* 1 NOTE MISC PATCH OFF SCH (21:49)
[2018-09-02] MEDS: HYDROmorphone INJ1* 1 MG/ML SYRINGE IV SLOW PU PRN ×5 (04:30→19:34)
[2018-09-02] MEDS: Dexamethasone IV* 4 MG/ML 1 ML (4 MG) IV SLOW PU SCH ×3 (04:31→21:39)
[2018-09-02] MEDS: LORazepam INJ* 2 MG/ML 1 ML VIAL IV PUSH PRN (04:31)
[2018-09-02] MEDS: NS 0.9% 1000 ML* 1,000 ML IV SCH (04:48)
[2018-09-02] MEDS: Hyoscyamine TAB* 0.125 MG SCH ×3 (07:16→15:46)
[2018-09-02] MEDS: DIGESTIVE PO SCH ×3 (07:20→15:42)
[2018-09-02] MEDS: [UNRECOGNIZED DRUG - OTHER] PO SCH ×3 (07:20→15:42)
[2018-09-02] MEDS: HYDROmorphone INJ1* 1 MG/ML SYRINGE IV PRN (07:22)
[2018-09-02] MEDS: Acetaminophen TAB* 325 MG PO SCH (09:57)
[2018-09-02] MEDS: Omeprazole CAP* 20 MG PO SCH (10:01)
[2018-09-02] MEDS: Magnesium Oxide TAB* 400 MG PO SCH (10:01)
[2018-09-02] MEDS: Lidocaine PATCH 5%* 1 PATCH TRANSDERM SCH (10:01)
--- NOTE | 2018-09-02 10:40 | PN ---
Progress Note - Progress Note Date of Service: 09/02/18 SOAP: Subjective: []Doing ok as long as she has pain medications. Is only taking small sips of fluids. Did not tolerate PO tylenol pill this AM. at bedside and curious about her prognosis. Medications: Acetaminophen (Tylenol Tab*) 650 mg PO QID [facility] Last Admin: 09/02/18 09:57 Dose: Not Given Dexamethasone Sodium Phosphate (Decadron Iv*) 4 mg IV SLOW PU Q8HR [facility] Last Admin: 09/02/18 04:31 Dose: 4 mg Diphenhydramine HCl (Benadryl Po*) 50 mg PO BEDTIME PRN PRN Reason: SLEEP Last Admin: 08/29/18 04:44 Dose: 50 mg Enoxaparin Sodium (Lovenox(*)) 40 mg SUBCUT Q24H [facility] Last Admin: 09/01/18 12:08 Dose: 40 mg Heparin Sodium (Porcine) (Heparin Flush Port (Ivad)) 5 ml FLUSH DAILY [facility]; Protocol Last Admin: 09/02/18 10:01 Dose: Not Given Hydromorphone HCl (Dilaudid Inj1s*) 1 mg IV SLOW PU Q2H PRN PRN Reason: PAIN Last Admin: 09/02/18 10:22 Dose: 1 mg Hydromorphone HCl (Dilaudid Inj1s*) 0.5 mg IV Q2H PRN PRN Reason: PAIN MODERATE Last Admin: 09/02/18 07:22 Dose: 0.5 mg Hyoscyamine (Anaspaz Tab*) 0.125 mg .SEE ORDER AC [facility] Last Admin: 09/02/18 07:16 Dose: 0.125 mg Sodium Chloride (Ns 0.9% 1000 Ml*) 1,000 mls @ 75 mls/hr IV PER RATE [facility] Last Admin: 09/02/18 04:48 Dose: 75 mls/hr Ibuprofen (Motrin Tab*) 800 mg PO BID PRN PRN Reason: PAIN Last Admin: 08/28/18 13:04 Dose: 800 mg Lidocaine (Lidoderm 5% Patch*) 1 patch TRANSDERM DAILY [facility] Last Admin: 09/02/18 10:01 Dose: Not Given Lorazepam (Ativan Inj*) 1 mg IV PUSH Q2H PRN PRN Reason: Anxiety/insomnia/discomfort Last Admin: 09/02/18 04:31 Dose: 1 mg Magnesium Oxide (Magox 400 Tab*) 400 mg PO DAILY [facility] Last Admin: 09/02/18 10:01 Dose: Not Given (Digestive 8/L. Acidoph/Pectin [ Digestive Enzymes Tablet] 1 Tab) 1 tab PO AC [facility] Last Admin: 09/02/18 07:20 Dose: Not Given Omeprazole (Prilosec Cap*) 20 mg PO DAILY [facility] Last Admin: 09/02/18 10:01 Dose: Not Given Ondansetron HCl (Zofran Inj*) 4 mg IV Q4H PRN PRN Reason: NAUSEA/VOMITING Last Admin: 09/01/18 15:40 Dose: 4 mg Ondansetron HCl (Zofran Odt Tab*) 4 mg PO Q6H PRN PRN Reason: NAUSEA Last Admin: 08/31/18 03:08 Dose: 4 mg Pharmacy Profile Note (Lidocaine Patch Remove*) 1 note PATCH OFF 2100 [facility] Last Admin: 09/01/18 21:49 Dose: 1 note Prochlorperazine (Compazine Tab*) 10 mg PO Q6H PRN PRN Reason: NAUSEA Objective: [] Vital Signs Temp Pulse Resp BP Pulse Ox 98.6 F 92 16 124/79 96 09/01/18 23:58 09/01/18 23:58 09/02/18 10:27 09/01/18 23:58 09/01/18 23:58 Alert and oriented to situation, however falls alseep during assessment Resp. even and non-labored without audible wheeze or rhonchi No acute distress noted Cachetic Assessment: []73 yo female with end stage metastatic pancreatic CA admitted with L2 lesion causing cord compression now s/p palliative RT. Her pain has been well managed with IV dilaudid and the plan is for transition to hospice. At this time I suspect she will decline rapidly and I am concerned for her families ability to manage her care at home, I have recommended evaluation for the hospice residence if a bed is available. If a bed is not available her is motivated and we can attempt home management. Plan: []1. Comfort measures: decrease IV fluids to KVO - switch tylenol to liquid as not taking pills well - cont. IV dilaudid - stop unnecessary medications DNR
[2018-09-02] MEDS ORDERED: Acetaminophen ADULT LIQ* 650 MG/20.3 ML UDC PO PRN (10:42)
[2018-09-02] MEDS ORDERED: NS 0.9% 1000 ML* 1,000 ML IV SCH (10:44)
[2018-09-02] MEDS: Lidocaine Patch REMOVE* 1 NOTE MISC PATCH OFF SCH (19:06)
[2018-09-03] MEDS: HYDROmorphone INJ1* 1 MG/ML SYRINGE IV SLOW PU PRN ×4 (00:29→11:29)
[2018-09-03] MEDS: Dexamethasone IV* 4 MG/ML 1 ML (4 MG) IV SLOW PU SCH (05:19)
[2018-09-03 08:01] VITALS: BP 117/82
[2018-09-03] MEDS: DIGESTIVE PO SCH (08:46)
[2018-09-03] MEDS: Hyoscyamine TAB* 0.125 MG SCH (08:46)
[2018-09-03] MEDS: [UNRECOGNIZED DRUG - OTHER] PO SCH (08:46)
[2018-09-03] MEDS: Lidocaine PATCH 5%* 1 PATCH TRANSDERM SCH (08:47)
--- NOTE | 2018-09-03 09:10 | PN ---
Progress Note - Progress Note Date of Service: 09/03/18 SOAP: Subjective: [Pain relatively well controlled. Somewhat more alert today. No new complaints.] Objective: [ Acetaminophen (Tylenol Adult Liq*) 650 mg PO QID PRN PRN Reason: PAIN Dexamethasone Sodium Phosphate (Decadron Iv*) 4 mg IV SLOW PU Q8HR [facility] Last Admin: 09/03/18 05:19 Dose: 4 mg Diphenhydramine HCl (Benadryl Po*) 50 mg PO BEDTIME PRN PRN Reason: SLEEP Last Admin: 08/29/18 04:44 Dose: 50 mg Heparin Sodium (Porcine) (Heparin Flush Port (Ivad)) 5 ml FLUSH DAILY [facility]; Protocol Last Admin: 09/03/18 08:46 Dose: Not Given Hydromorphone HCl (Dilaudid Inj1s*) 1 mg IV SLOW PU Q2H PRN PRN Reason: PAIN Last Admin: 09/03/18 08:47 Dose: 1 mg Hydromorphone HCl (Dilaudid Inj1s*) 0.5 mg IV Q2H PRN PRN Reason: PAIN MODERATE Last Admin: 09/02/18 07:22 Dose: 0.5 mg Hyoscyamine (Anaspaz Tab*) 0.125 mg .SEE ORDER [facility] Last Admin: 09/03/18 08:46 Dose: 0.125 mg Sodium Chloride (Ns 0.9% 1000 Ml*) 1,000 mls @ 30 mls/hr IV PER RATE [facility] Last Admin: 09/02/18 12:32 Dose: 30 mls/hr Lidocaine (Lidoderm 5% Patch*) 1 patch TRANSDERM DAILY [facility] Last Admin: 09/03/18 08:47 Dose: Not Given Lorazepam (Ativan Inj*) 1 mg IV PUSH Q2H PRN PRN Reason: Anxiety/insomnia/discomfort Last Admin: 09/02/18 04:31 Dose: 1 mg (Digestive 8/L. Acidoph/Pectin [ Digestive Enzymes Tablet] 1 Tab) 1 tab PO [facility] Last Admin: 09/03/18 08:46 Dose: Not Given Ondansetron HCl (Zofran Inj*) 4 mg IV Q4H PRN PRN Reason: NAUSEA/VOMITING Last Admin: 09/01/18 15:40 Dose: 4 mg Ondansetron HCl (Zofran Odt Tab*) 4 mg PO Q6H PRN PRN Reason: NAUSEA Last Admin: 08/31/18 03:08 Dose: 4 mg Pharmacy Profile Note (Lidocaine Patch Remove*) 1 note PATCH OFF 2100 [facility] Last Admin: 09/02/18 19:06 Dose: Not Given Vital Signs: Temp Pulse Resp BP Pulse Ox 98.4 F 112 16 117/82 97 09/03/18 07:06 09/03/18 07:06 09/03/18 08:47 09/03/18 07:06 09/03/18 07:06 Exam: Gen: Chronically ill and cachectic in appearance, lethargic. Accompanied by her HEENT: dry MM CV: RRR, no m/r/g Resp: CTA, no w/c/r Abd: soft, diffusely TTP Ext: no edema Neuro: grossly intact, FROM of all extremities] Assessment: [73 yo female with metastatic pancreatic CA admitted with L2 lesion causing cord compromise now s/p single fraction of palliative RT.] Plan: [1. L2 metastatic lesion with epidural extension and cord compromise - s/p palliative RT - cont IV dexamethasone - cont with IV dilaudid - intolerant of multiple other opiates 2. Metastatic pancreatic CA - dc to Hospice, would benefit from residence - life expectancy days to weeks Dispo: pending Hospice residence]
[2018-09-03] MEDS: HYDROmorphone INJ1* 1 MG/ML SYRINGE IV PRN (11:30)
--- NOTE | 2018-09-03 11:43 | DS ---
CC: Dr. Vines; Dr. Salazar* DATE OF ADMISSION: 08/28/2018. DATE OF DISCHARGE: 09/03/2018. ATTENDING PHYSICIAN: Dr. López* (dictated by JOHANNY Cornelius). DISCHARGING PROVIDER: JOHANNY Cornelius. PRIMARY CARE PHYSICIAN: Dr. Vines. PRIMARY ONCOLOGIST: Dr. Salazar. PRIMARY DISCHARGE DIAGNOSES: 1. 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 2. Metastatic pancreatic cancer. 3. Severe protein calorie malnutrition. DISCHARGE MEDICATIONS: 1. Acetaminophen 650 mg p.o. 4 times daily as needed. 2. Digestive enzymes one tablet p.o. at meal time. 3. Diphenhydramine 50 mg p.o. at bedtime. 4. Ibuprofen 800 mg p.o. twice daily as needed. 5. Ativan 1 mg p.o. q.4 hours as needed. 6. Medical marijuana one dose p.o. as needed for pain every 2 hours. 7. Zofran oral dissolvable tablet 4 mg p.o. q.6 hours as needed. 8. Compazine 10 mg p.o. q.6 hours as needed. 9. Dexamethasone 4 mg p.o. 3 times daily. 10. Dilaudid 2 mg p.o. q.2 hours as needed. 11. Hyoscyamine 0.125 mg sublingual q.6 hours as needed. 12. Lidocaine patch one patch applied transdermally every 24 hours. HOSPITAL IMAGING: CT of the lumbar spine, 08/27/2018, demonstrates interval development of an expansile osteolytic lesion of L2 consistent with progression of osseous metastatic disease with epidural extension of the tumor at this level resulting in moderate to severe narrowing of the central canal. HOSPITAL COURSE: This is a 73-year-old female with metastatic pancreatic cancer who has unfortunately done quite poorly with palliative chemotherapy, who has had extensive difficulty with adequate nutrition due to associated abdominal pain and cramping with eating. She was seen in the emergency department on two occasions prior to this hospitalization with complaints of weakness. A CT of the lumbar spine demonstrated an expansile osteolytic lesion at L2 with moderate cord compromise, but she had no corresponding neurologic deficit at that time and the patient desired management as an outpatient if at all possible. She was discharged home with oral Dexamethasone, but returned to the following day with intractable pain, unable to manage at home. She was subsequently admitted to the hospital with goal for pain management and received a single fraction of palliative radiation under the care of Dr. Neff. The patient was unable to continue to manage symptoms at home and recommendation was discharge to hospice residence. JOHANNY CORNELIUS [id number]/[id number] #: [id number] SEEMA
== END 2018-09-03 11:39 | disposition hospice, inpatient (51) | DRG 542 ==
LOC: MED 10:40 → MEDTELE 08-30 20:44
PROVIDERS: ADMIT Internal Medicine Hematology & Oncology; ATTEND Internal Medicine Hematology & Oncology
PROC: D0Y67ZZ Contact Radiation of Spinal Cord (ICD-10-PCS; principal; 2018-09-01)
DX: C79.51 Secondary malignant neoplasm of bone (principal); E43 Unspecified severe protein-calorie malnutrition; C79.49 Secondary malignant neoplasm of other parts of nervous system; C25.9 Malignant neoplasm of pancreas, unspecified; Z68.1 Body mass index [BMI] 19.9 or less, adult; G95.29 Other cord compression; G89.29 Other chronic pain; M89.58 Osteolysis, other site; Z66 Do not resuscitate; Z51.5 Encounter for palliative care; Z80.3 Family history of malignant neoplasm of breast
CPT/HCPCS: 36415; 77280; 77307; 77331; 77332; 77412; 77417; 80053; 85025; 99222; 99232; 99239; A9270-GY; J1100; J1170; J1642; J1650; J2060; J2405